=== PATIENT | female | born 1995 | race African-American/Black ===

== ENCOUNTER 2017-01-11 18:07 | Emergency (ER) | payer OTHER ==
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
[2017-01-11 20:11] LABS: Appearance,Urine Clear (Clear); Bacteria,Urine Rare /hpf; Bilirubin,Urine Negative (Negative); Glucose,Urine (UA) Negative (Negative); Ketones,Urine Negative (Negative); Leukocyte Esterase,Urine Moderate (Negative); Mucus,Urine Rare /hpf; Nitrite,Urine Negative (Negative); Particle Count 5845; Protein,Urine Trace (Negative); RBC,Urine 2 /hpf (0-5); Specific Gravity,Urine 1.027 (1.001-1.035); Squamous Epithelial Cell,Urine 4 /hpf (0-4); UA Billing (MACRO vs. MICRO) MICRO; WBC,Urine 17 /hpf (0-5)
[2017-01-11] MEDS ORDERED: NITROFURANTOIN MONOHYD/M-CRYST 100 MG CAP PO STA (20:34)
[2017-01-11 20:51] VITALS: BP 115/66; PULSE 62; RESP 16; TEMP 98.9
== END 2017-01-11 20:50 | disposition home or self-care (01) ==
LOC: EC 18:07
DX: N39.0 Urinary tract infection, site not specified (principal); Z11.3 Encounter for screening for infections with a predominantly sexual mode of transmission; N92.0 Excessive and frequent menstruation with regular cycle; Z87.891 Personal history of nicotine dependence; Z88.6 Allergy status to analgesic agent
CPT/HCPCS: 81001; 81025; 87070; 87077; 87086; 87186; 87205; 87491; 87591; 87808; 99284

== ENCOUNTER → 2018-02-28 | Outpatient (CLI) | payer OTHER ==
--- NOTE | 2018-02-28 13:42 | US ---
EXAMINATION TYPE: Transabdominal DATE OF EXAM: 12/21/17 COMPARISON: NONE CLINICAL HISTORY: Z36 confirm dates. confirm dates EXAM PERFORMED: Transabdominal (TA) EXAM MEASUREMENTS: GESTATIONAL AGE / DATING Physician Established: Not yet established Dates by LMP: (7 weeks/6 days) EDC: 10/11/18 Dates by First Scan: No previous this is first scan Dates by Current Scan for: (8 weeks/4 days) EDC: 10/06/18 MATERNAL ANATOMY Uterus: 11.5 x 5.0 x 6.8cm Right Ovary: 2.1 x 0.9 x 2.4cm Left Ovary: 3.4 x 2.0 x 1.6cm Post CDS / Adnexa: wnl Presence of free fluid: no Presence of corpus luteal cyst: yes, left ovary = 1.9 x 1.9 x 1.7cm Presence of subchorionic bleed: yes, hypoechoic area inferior (1.2cm) and left (1.4cm) of GS GESTATION / SURVEY CRL: 2.0cm (8 weeks/4 days) Yolk Sac (normal less than 6mm): 2.5mm Heart Rate: 162 bpm Rhythm: Normal IUP: Viable IUP Date of LMP: 01/04/18 Beta HcG (if available): Not available at this time Single viable IUP 8wks/4days with JW of 10/06/18. Subchorionic bleed inferior and left of GS. Corpus luteum left ovary. IMPRESSION: 1. Single intrauterine gestation estimated at 8 weeks 4 days gestation based on crown-rump length. Ca rdiac activity measures 1 62 bpm. The estimated date of confinement based on the crown-rump length is 10/06/2018. 2. Subchorionic hemorrhage
== END | disposition home or self-care (01) ==
LOC: RADUSWWP 12:57
PROVIDERS: ATTEND Obstetrics & Gynecology
DX: O20.8 Other hemorrhage in early pregnancy (principal); Z3A.08 8 weeks gestation of pregnancy
CPT/HCPCS: 76801

== ENCOUNTER 2018-05-05 09:57 | Emergency (ER) | payer OTHER ==
[2018-05-05] MEDS ORDERED: METOCLOPRAMIDE 5 MG/ML 2 ML VIAL IVP STA (11:07)
[2018-05-05] MEDS ORDERED: diphenhydrAMINE 50 MG/ML 1 ML VIAL IVP STA (11:07)
[2018-05-05] MEDS ORDERED: SODIUM CHLORIDE 0.9% 1,000 ML IV STA (11:07)
[2018-05-05] MEDS ORDERED: ACETAMINOPHEN TAB 500 MG TAB PO STA (11:07)
[2018-05-05 11:38] LABS: Appearance,Urine Cloudy (Clear); Bilirubin,Urine Negative (Negative); Blood,Urine Negative (Negative); Color,Urine Light Yellow; Glucose,Urine (UA) Negative (Negative); Ketones,Urine 2+ (Negative); Leukocyte Esterase,Urine Negative (Negative); Nitrite,Urine Negative (Negative); PH, Urine 8.5 (5.0-8.0); Protein,Urine Negative (Negative); Specific Gravity,Urine 1.013 (1.001-1.035); Squamous Epithelial Cell,Urine 3 /hpf (0-4); Urobilinogen,Urine <2.0 mg/dL (<2.0); WBC,Urine 1 /hpf (0-5)
[2018-05-05] MEDS ORDERED: SODIUM CHLORIDE 0.9% 1,000 ML IV SCH (11:45)
--- NOTE | 2018-05-05 11:45 | ED ---
Abdominal Pain HPI - General Chief Complaint: Abdominal Pain Stated Complaint: Vomiting-18 wks Time Seen by Provider: 05/05/18 10:40 Source: patient, RN notes reviewed, old records reviewed Mode of arrival: wheelchair Limitations: no limitations - History of Present Illness Initial Comments: 22-year-old female presents emergency department today with chief complaint of nausea and vomiting for the past week. Patient reports that she is able to weeks , her HYBRID CORN BREEDER is Dr. Waller. She denies any vaginal bleeding. Patient pushes her had this type of vomiting with her previous . Patient states that she has not been able tolerate any fluids. Patient states she feels very weak and dehydrated. - Related Data Home Medications Medication Instructions Recorded Confirmed Albuterol Inhaler [Ventolin Hfa 1 - 2 puff INHALATION RT-Q6H PRN 01/11/17 Inhaler] Mds-Dtpu-Juqbu Acid 1 cap PO DAILY 05/05/18 05/05/18 [-U Capsule (formulary)] Previous Rx's Medication Instructions Recorded Doxylamine Succinate/Vit B6 1 each PO BID #20 tab.ir.dr 05/05/18 [Bonjesta ER 20-20 mg Tablet] Allergies Allergy/AdvReac Type Severity Reaction Status Date / Time tramadol AdvReac Nausea & Verified 05/05/18 12:44 Vomiting Review of Systems ROS Statement: Those systems with pertinent positive or pertinent negative responses have been documented in the HPI. ROS Other: All systems not noted in ROS Statement are negative. Past Medical History Past Medical History: Asthma History of Any Multi-Drug Resistant Organisms: ESBL Date of last positivie culture/infection: 01/11/17 MDRO Source:: ESBL URINE Additional Past Surgical History / Comment(s): neck tumor Past Anesthesia/Blood Transfusion Reactions: No Reported Reaction Past Psychological History: Depression Smoking Status: Former smoker Past Alcohol Use History: Occasional Past Drug Use History: Marijuana - Past Family History Mother Family Medical History: No Reported History, Hypertension General Exam - General Exam Comments Initial Comments: 22-year-old female. Alert and oriented. No significant distress, Patient does appear somewhat irritable. Patient has had a few episodes of vomiting while in exam room. Limitations: no limitations General appearance: alert, in no apparent distress Head exam: Present: atraumatic, normocephalic, normal inspection Eye exam: Present: normal appearance, PERRL, EOMI. Absent: scleral icterus, conjunctival injection, periorbital swelling ENT exam: Present: normal exam, mucous membranes moist Neck exam: Present: normal inspection. Absent: tenderness, meningismus, lymphadenopathy Respiratory exam: Present: normal lung sounds bilaterally. Absent: respiratory distress, wheezes, rales, rhonchi, stridor Cardiovascular Exam: Present: regular rate, normal rhythm, normal heart sounds. Absent: systolic murmur, diastolic murmur, rubs, gallop, clicks GI/Abdominal exam: Present: soft, normal bowel sounds. Absent: distended, tenderness, guarding, rebound, rigid Extremities exam: Present: normal inspection, full ROM, normal capillary refill. Absent: tenderness, pedal edema, joint swelling, calf tenderness Back exam: Present: normal inspection Neurological exam: Present: alert, oriented X3, CN II-XII intact Psychiatric exam: Present: normal affect, normal mood Skin exam: Present: warm, dry, intact, normal color. Absent: rash Course Vital Signs 05/05/18 05/05/18 10:35 12:54 Temperature 98.2 F Pulse Rate 88 92 Respiratory 16 18 Rate Blood Pressure 137/74 124/68 O2 Sat by Pulse 100 98 Oximetry Medical Decision Making - Medical Decision Making 22-year-old female present month nausea vomiting or complaints. She states she weeks . At this time patient's labwork was reviewed and unremarkable. Is given 2 L fluids. She is given Reglan and Benadryl does report some relief. She went to burning pain in her abdomen. She was given a dose of Protonix. I discussed other medications for her nausea and can be category B or C with patient's. I will give the Patient a prescription for day clean just like to see nausea and vomiting. She also is currently in counseling. I discussed that she can follow-up with PCP. All questions answered return parameters were discussed. - Lab Data Result diagrams: 05/05/18 11:20 05/05/18 11:20 Lab Results 05/05/18 05/05/18 05/05/18 Range/Units 11:20 11:20 11:20 WBC 12.1 H (3.8-10.6) k/uL RBC 3.94 (3.80-5.40) m/uL Hgb 12.5 (11.4-16.0) gm/dL Hct 37.8 (34.0-46.0) % MCV 96.0 (80.0-100.0) fL MCH 31.6 (25.0-35.0) pg MCHC 33.0 (31.0-37.0) g/dL RDW 13.7 (11.5-15.5) % Plt Count 231 (150-450) k/uL Neutrophils % 81 % Lymphocytes % 15 % Monocytes % 2 % Eosinophils % 1 % Basophils % 0 % Neutrophils # 9.8 H (1.3-7.7) k/uL Lymphocytes # 1.8 (1.0-4.8) k/uL Monocytes # 0.3 (0-1.0) k/uL Eosinophils # 0.2 (0-0.7) k/uL Basophils # 0.0 (0-0.2) k/uL PT 10.0 (9.0-12.0) sec INR 1.0 (<1.2) APTT 22.9 (22.0-30.0) sec Sodium 137 (137-145) mmol/L Potassium 3.8 (3.5-5.1) mmol/L Chloride 108 H (98-107) mmol/L Carbon Dioxide 16 L (22-30) mmol/L Anion Gap 13 mmol/L BUN 5 L (7-17) mg/dL Creatinine 0.53 (0.52-1.04) mg/dL Est GFR (CKD-EPI)AfAm >90 (>60 ml/min/1.73 sqM) Est GFR (CKD-EPI)NonAf >90 (>60 ml/min/1.73 sqM) Glucose 99 (74-99) mg/dL Calcium 9.3 (8.4-10.2) mg/dL Total Bilirubin 0.4 (0.2-1.3) mg/dL AST 27 (14-36) U/L ALT 28 (9-52) U/L Alkaline Phosphatase 45 (38-126) U/L Total Protein 7.1 (6.3-8.2) g/dL Albumin 4.0 (3.5-5.0) g/dL Amylase 167 H (30-110) U/L Lipase 25 (23-300) U/L Urine Color Urine Appearance (Clear) Urine pH (5.0-8.0) Ur Specific [place] (1.001-1.035) Urine Protein (Negative) Urine Glucose (UA) (Negative) Urine Ketones (Negative) Urine Blood (Negative) Urine Nitrite (Negative) Urine Bilirubin (Negative) Urine Urobilinogen (<2.0) mg/dL Ur Leukocyte Esterase (Negative) Urine WBC (0-5) /hpf Ur Squamous Epith Cells (0-4) /hpf 05/05/18 Range/Units 11:20 WBC (3.8-10.6) k/uL RBC (3.80-5.40) m/uL Hgb (11.4-16.0) gm/dL Hct (34.0-46.0) % MCV (80.0-100.0) fL MCH (25.0-35.0) pg MCHC (31.0-37.0) g/dL RDW (11.5-15.5) % Plt Count (150-450) k/uL Neutrophils % % Lymphocytes % % Monocytes % % Eosinophils % % Basophils % % Neutrophils # (1.3-7.7) k/uL Lymphocytes # (1.0-4.8) k/uL Monocytes # (0-1.0) k/uL Eosinophils # (0-0.7) k/uL Basophils # (0-0.2) k/uL PT (9.0-12.0) sec INR (<1.2) APTT (22.0-30.0) sec Sodium (137-145) mmol/L Potassium (3.5-5.1) mmol/L Chloride (98-107) mmol/L Carbon Dioxide (22-30) mmol/L Anion Gap mmol/L BUN (7-17) mg/dL Creatinine (0.52-1.04) mg/dL Est GFR (CKD-EPI)AfAm (>60 ml/min/1.73 sqM) Est GFR (CKD-EPI)NonAf (>60 ml/min/1.73 sqM) Glucose (74-99) mg/dL Calcium (8.4-10.2) mg/dL Total Bilirubin (0.2-1.3) mg/dL AST (14-36) U/L ALT (9-52) U/L Alkaline Phosphatase (38-126) U/L Total Protein (6.3-8.2) g/dL Albumin (3.5-5.0) g/dL Amylase (30-110) U/L Lipase (23-300) U/L Urine Color Light Yellow Urine Appearance Cloudy H (Clear) Urine pH 8.5 H (5.0-8.0) Ur Specific [place] 1.013 (1.001-1.035) Urine Protein Negative (Negative) Urine Glucose (UA) Negative (Negative) Urine Ketones 2+ H (Negative) Urine Blood Negative (Negative) Urine Nitrite Negative (Negative) Urine Bilirubin Negative (Negative) Urine Urobilinogen <2.0 (<2.0) mg/dL Ur Leukocyte Esterase Negative (Negative) Urine WBC 1 (0-5) /hpf Ur Squamous Epith Cells 3 (0-4) /hpf Disposition Clinical Impression: 18 weeks gestation of , Nausea & vomiting Disposition: HOME SELF-CARE Condition: Good Instructions: Nausea and Vomiting in (ED) Additional Instructions: Patient advised follow-up with primary care physician. Return to emergency department if any alarming signs or symptoms occur. Prescriptions: Doxylamine Succinate/Vit B6 [Bonjesta ER 20-20 mg Tablet] 1 each PO BID #20 tab.ir.dr Is patient prescribed a controlled substance at d/c from ED?: No Referrals: None,Stated [Primary Care Provider] - 1-2 days Time of Disposition: 13:59
[2018-05-05 11:49] LABS: Basophils % (A) 0 %; Eosinophils # (A) 0.2 k/uL (0-0.7); Eosinophils % (A) 1 %; HCT 37.8 % (34.0-46.0); HGB 12.5 gm/dL (11.4-16.0); Lymphocytes # (A) 1.8 k/uL (1.0-4.8); Lymphocytes % (A) 15 %; MCH 31.6 pg (25.0-35.0); Mean Platelet Volume 9.6; Monocytes # (A) 0.3 k/uL (0-1.0); Monocytes % (A) 2 %; Neutrophils # (A) 9.8 k/uL (1.3-7.7); Neutrophils % (A) 81 %; Platelet Count 231 k/uL (150-450); RBC 3.94 m/uL (3.80-5.40); RDW 13.7 % (11.5-15.5); WBC 12.1 k/uL (3.8-10.6)
[2018-05-05 11:55] LABS: ALT 28 U/L (9-52); AST 27 U/L (14-36); Alkaline Phosphatase 45 U/L (38-126); Amylase 167 U/L (30-110); Anion Gap 13 mmol/L; Blood Urea Nitrogen 5 mg/dL (7-17); Calcium 9.3 mg/dL (8.4-10.2); Carbon Dioxide 16 mmol/L (22-30); Chloride 108 mmol/L (98-107); Glucose 99 mg/dL (74-99); Lipase 25 U/L (23-300); Potassium 3.8 mmol/L (3.5-5.1); Sodium 137 mmol/L (137-145); Total Bilirubin 0.4 mg/dL (0.2-1.3); Total Protein 7.1 g/dL (6.3-8.2)
[2018-05-05 12:07] LABS: Partial Thromboplastin Time 22.9 sec (22.0-30.0)
--- NOTE | 2018-05-05 12:32 | US ---
EXAMINATION TYPE: US OB >= 14 wk fetus DATE OF EXAM: 05/05/2018 COMPARISON: US CLINICAL HISTORY: Pain Pt states cramping, N & V TECHNIQUE: Transabdominal (TA) GESTATIONAL AGE / DATING Physician Established: (18 weeks/0 days) EDC: 10/06/2018 Dates by First Scan: (18 weeks/0 days) EDC: 10/06/2018 Dates by Current Scan: (18 weeks/0 days) EDC: 10/06/2018 SURVEY IUP: Single PLACENTA: Anterior PREVIA: No Previa MAGI: 10.9 cm Normal CERVICAL LENGTH (transabdominal: norm > 3.0cm): 3.2 cm BIOMETRY PRESENTATION: Breech BPD: 4.1 cm 18 weeks / 2 days HC: 14.8 cm 17 weeks / 6 days AC: 12.8 cm 18 weeks / 2 days FL: 2.6 cm 17 weeks / 5 days ESTIMATED WEIGHT IN GRAMS: 221 grams ESTIMATED WEIGHT IN LBS/OZ: 0 lbs. 8 oz. WEIGHT PERCENTAGE BASED ON ESTABLISHED DATES: 47.2% HC/AC: 1.16 Normal FL/AC: 20 Normal HEART RATE: 151 bpm RHYTHM: Normal Some debris is noted within the amniotic fluid thickness of undetermined clinical significance. Single, viable IUP/ No abnormality visualized at this time IMPRESSION: Single live intrauterine with a sonographic age of 18 weeks and 0 days and estimated date o f delivery of 10/06/2018, concordant with menstrual age.
[2018-05-05 12:55] VITALS: PULSE 92; RESP 18
[2018-05-05] MEDS ORDERED: PANTOPRAZOLE 40 MG/10 ML VIAL IVP STA (13:00)
[2018-05-05] MEDS ORDERED: PYRIDOXINE 100 MG/ML 1 ML VIAL IVP STA (14:01)
[2018-05-05 14:36] VITALS: BP 134/87; TEMP 98.9
== END 2018-05-05 14:34 | disposition home or self-care (01) ==
LOC: EC 09:57
DX: O21.9 Vomiting of pregnancy, unspecified (principal); O99.89 Other specified diseases and conditions complicating pregnancy, childbirth and the puerperium; R10.9 Unspecified abdominal pain; O99.512 Diseases of the respiratory system complicating pregnancy, second trimester; J45.909 Unspecified asthma, uncomplicated; Z87.891 Personal history of nicotine dependence; Z88.6 Allergy status to analgesic agent; Z3A.18 18 weeks gestation of pregnancy
CPT/HCPCS: 99284; 96374; 96375 ×3; 96361 ×3; 36415; 80053; 82150; 83690; 85025; 85610; 85730; 81001; 76805; J1200; J3415; J2765; C9113

== ENCOUNTER 2018-07-11 09:24 | Observation (INO) | payer OTHER ==
[2018-07-11] MEDS ORDERED: ONDANSETRON 4 MG/2 ML VIAL IVP STA (10:06)
[2018-07-11] MEDS: LACTATED RINGERS 1,000 ML IV SCH ×3 (10:11→16:05)
[2018-07-11 10:52] LABS: Appearance,Urine Cloudy (Clear); Bilirubin,Urine Negative (Negative); Blood,Urine Negative (Negative); Color,Urine Yellow; Glucose,Urine (UA) Negative (Negative); Ketones,Urine 3+ (Negative); Leukocyte Esterase,Urine Negative (Negative); Mucus,Urine Rare /hpf; Nitrite,Urine Negative (Negative); PH, Urine 7.5 (5.0-8.0); Protein,Urine 1+ (Negative); RBC,Urine <1 /hpf (0-5); Specific Gravity,Urine 1.022 (1.001-1.035); Squamous Epithelial Cell,Urine 10 /hpf (0-4); Urobilinogen,Urine <2.0 mg/dL (<2.0); WBC,Urine 1 /hpf (0-5)
[2018-07-11 11:32] LABS: Amphetamine Screen,Urine Not Detected (NotDetected); Barbiturate Screen,Urine Not Detected (NotDetected); Benzodiazepines Screen,Urine Not Detected (NotDetected); Cocaine Screen,Urine Not Detected (NotDetected); Methadone Screen, Urine Not Detected (NotDetected); Opiate Screen,Urine Not Detected (NotDetected); Oxycodone Screen, Urine Not Detected (NotDetected); Phencyclidine Screen,Urine Not Detected (NotDetected); Tricyclic Antidepressant,Urine Not Detected (NotDetected); Urn Cannabinoid Scrn Detected (NotDetected)
[2018-07-11] MEDS: NIFEdipine 10 MG CAP PO PRN ×3 (11:51→13:10)
--- NOTE | 2018-07-11 14:26 | US ---
EXAMINATION TYPE: US OB >= 14 wk fetus DATE OF EXAM: 07/11/2018 COMPARISON: US 2018 CLINICAL HISTORY: cervical length, magi, efwSharp pelvic pains and N/V x 1 day, 2, para 1 TECHNIQUE: Transabdominal (TA) GESTATIONAL AGE / DATING Physician Established: (27 weeks/4 days) EDC: 10/06/2018 Dates by LMP: (26 weeks/6 days) EDC: 10/11/2018 Dates by First Scan: (27 weeks/4 days) EDC: 10/06/2018 Dates by Current Scan: (26 weeks/5 days) EDC: 10/12/2018 SURVEY IUP: Single PLACENTA: Anterior PREVIA: No Previa MAGI: 15.0 cm Normal CERVICAL LENGTH (transabdominal: norm > 3.0cm): 3.1 cm BIOMETRY PRESENTATION: Vertex BPD: 7.0 cm 28 weeks / 0 days HC: 25.0 cm 27 weeks / 1 days AC: 22.1 cm 26 weeks / 4 days FL: 5.0 cm 27 weeks / 0 days ESTIMATED WEIGHT IN GRAMS: 989 grams ESTIMATED WEIGHT IN LBS/OZ: 2 lbs. 3 oz. WEIGHT PERCENTAGE BASED ON ESTABLISHED DATES: 15% HC/AC: 1.13 Normal FL/AC: 22.7 Normal HEART RATE: 136 bpm RHYTHM: Normal Live single IUP measuring 26 weeks 5 days with a heart rate of 136bpm and an estimated delivery date of 10/12/2018. IMPRESSION: Single live intrauterine with a sonographic age of 26 weeks and 5 days and estimated date o f delivery 10/12/2018, concordant with menstrual age. Amniotic fluid index and cervical length are wit hin normal limits. Heart rate is also within normal limits at 1 36 bpm.
[2018-07-11 15:15] LABS: Basophils % (A) 0 %; Eosinophils # (A) 0.3 k/uL (0-0.7); Eosinophils % (A) 2 %; HCT 37.7 % (34.0-46.0); HGB 12.6 gm/dL (11.4-16.0); Lymphocytes % (A) 5 %; MCHC 33.3 g/dL (31.0-37.0); Mean Platelet Volume 9.3; Monocytes # (A) 0.3 k/uL (0-1.0); Monocytes % (A) 2 %; Neutrophils # (A) 16.7 k/uL (1.3-7.7); Neutrophils % (A) 91 %; Platelet Count 233 k/uL (150-450); RBC 3.93 m/uL (3.80-5.40); RDW 13.3 % (11.5-15.5); WBC 18.4 k/uL (3.8-10.6)
[2018-07-11] MEDS ORDERED: BETAMET ACET-BETAMETH SOD PHOS 6 MG/ML VIAL IM SCH (15:45)
[2018-07-11] MEDS ORDERED: MAGNESIUM SULFATE-WATER PMX 4 GM in WATER FOR INJECTION 1 50ML.BAG IVPB STA (15:49)
[2018-07-11] MEDS ORDERED: MAGNESIUM SULFATE-WATER PMX 20 GM in WATER FOR INJECTION 1 500ML.BAG IV SCH (16:10)
--- NOTE | 2018-07-11 17:43 | P.HPOB ---
History of Present Illness H&P Date: 07/11/18 Chief Complaint: Intrauterine 27 weeks Patient is a 22-year-old at 27 weeks gestation arrives earlier today complaining of contractions. She was initially evaluated by her primary blueprint clerk who ordered basic evaluation. Her fibronectin was negative and initial cervical exam revealed her to be closed. Despite this and with IV hydration she continued to have contractions. I came and evaluated her myself and all she was having contractions every 1-2 minutes did not palpate is anything more than moderate and most of them were more than mild palpation scale. However, she continued to complain of pain that was 6 out of 10 with each contraction. CBC and TSH were ordered herself white count is elevated at 18 unclear etiology initially I had spoken with [facility] about a transfer as she was continued to contract and pain despite our therapies including a trial of Procardia 3. After discussing with him a decision to transfer her was made, and would plan bolus of mag sulfate 4 g and continuous dose of 2 g/h and a dose of Celestone. However shortly after the magnesium sulfate was started and before even finished her contractions stopped spontaneously and she fell asleep. We continued to monitor her in labor and delivery triage and she no water head contractions was complaining that she was hungry and to nausea and emesis that she had had earlier today had also resolved. As I do not feel comfortable simply sending her home, we have decided to admit her as an observation patient with the understanding that should her contractions returned and the pain get worse would plan transfer to [place]. She has no desire to be transferred at this time that his part of the reason that we are keeping her as she has no right home if she was to be transferred and she is very concerned about this. Her cervix is made no cervical change and there been no other issues. Category 1 tracing is noted. We'll plan to decrease that make sulfate later on this evening to 1 g an hour and if the contractions remain absent we'll plan to discontinue it later tonight. All the questions are answered for her at this time and other than likely starting an antibiotic as a precaution we'll plan this treatment. Past Medical History Past Medical History: Asthma History of Any Multi-Drug Resistant Organisms: ESBL Date of last positivie culture/infection: 01/11/17 MDRO Source:: ESBL URINE Additional Past Surgical History / Comment(s): neck tumor Past Anesthesia/Blood Transfusion Reactions: No Reported Reaction Smoking Status: Former smoker - Past Family History Mother Family Medical History: No Reported History, Hypertension Medications and Allergies Home Medications Medication Instructions Recorded Confirmed Type Albuterol Inhaler [Ventolin Hfa 1 - 2 puff INHALATION RT-Q6H PRN 01/11/17 History Inhaler] Chc-Rgio-Jlpjn Acid 1 cap PO DAILY 05/05/18 07/11/18 History [-U Capsule (formulary)] Allergies Allergy/AdvReac Type Severity Reaction Status Date / Time tramadol AdvReac Nausea & Verified 07/11/18 10:02 Vomiting Exam Osteopathic Statement: *. No significant issues noted on an osteopathic structural exam other than those noted in the History and Physical/Consult. Vital Signs Temp Pulse Resp BP Pulse Ox 07/11/18 09:59 96.4 F L 93 16 142/89 100 Intake and Output 07/11/18 07/11/18 07/11/18 06:59 14:59 22:59 Other: Weight 51.71 kg - OBG Physical Exam Breast: both: normal (no masses) Abdomen: bowel sounds normal, no diffuse tenderness, no bruit present, no guarding noted, no hepatomegaly, no splenomegaly, no mass Vulva: both: normal Vagina: normal moisture, no discharge Cervix: no lesion, no discharge Uterus: normal size, normal contour Adnexa: both: normal Anus/Rectum: normal perianal skin, no rectal mass, no hemorrhoids, heme negative Results Result Diagrams: 07/11/18 14:55 Abnormal Lab Results - Last 24 Hours (Table) 07/11/18 07/11/18 07/11/18 Range/Units 09:43 09:43 14:55 WBC 18.4 H (3.8-10.6) k/uL Neutrophils # 16.7 H (1.3-7.7) k/uL Urine Appearance Cloudy H (Clear) Urine Protein 1+ H (Negative) Urine Ketones 3+ H (Negative) Ur Squamous Epith Cells 10 H (0-4) /hpf Urine Mucus Rare H (None) /hpf U Marijuana (THC) Screen Detected H (NotDetected)
[2018-07-11 17:44] VITALS: BMI 21.5
[2018-07-11 17:56] VITALS: BP 129/69; PULSE 100; RESP 18; TEMP 98.1
[2018-07-11] MEDS: AMPICILLIN 1,000 MG in SODIUM CHLORIDE 0.9% 50 ML IVPB SCH (18:30)
[2018-07-11] MEDS: FAMOTIDINE 20 MG/2 ML VIAL IV SCH (22:37)
[2018-07-12] MEDS: AMPICILLIN 1,000 MG in SODIUM CHLORIDE 0.9% 50 ML IVPB SCH ×2 (02:58→09:39)
[2018-07-12] MEDS ORDERED: ONDANSETRON 4 MG/2 ML VIAL IVP STA (03:30)
[2018-07-12] MEDS ORDERED: MAG HYDROX/AL HYDROX/SIMETH 30 ML CUP PO SCH (04:30)
[2018-07-12] MEDS: LACTATED RINGERS 1,000 ML IV SCH (08:07)
[2018-07-12 08:17] LABS: Basophils % (A) 0 %; Eosinophils # (A) 0.1 k/uL (0-0.7); Eosinophils % (A) 1 %; HCT 30.2 % (34.0-46.0); HGB 10.3 gm/dL (11.4-16.0); Lymphocytes # (A) 1.4 k/uL (1.0-4.8); Lymphocytes % (A) 9 %; MCH 32.6 pg (25.0-35.0); MCHC 33.9 g/dL (31.0-37.0); Mean Platelet Volume 9.7; Monocytes # (A) 0.8 k/uL (0-1.0); Monocytes % (A) 5 %; Neutrophils # (A) 14.2 k/uL (1.3-7.7); Neutrophils % (A) 86 %; Platelet Count 200 k/uL (150-450); RBC 3.15 m/uL (3.80-5.40); RDW 13.4 % (11.5-15.5); WBC 16.6 k/uL (3.8-10.6)
--- NOTE | 2018-07-12 09:14 | P.PNOBGAP ---
Subjective - Subjective Principal diagnosis: Contractions, dehydration Interval history: Patient was admitted for observation after being given IV fluids and Procardia to stop her contractions. Right about the time she was scheduled to be transferred, she stopped jena and felt fine. She was observed overnight and given magnesium sulfate for neuro protection and IV antibiotics. She is still had episodes where she is writhing in the bed complaining of abdominal pain and vomiting. She states that getting up to the shower does help with the nausea but she has still been feeling some contractions. Her fibronectin was negative. Her cervix is still closed this morning. Antepartum ROS: Reports movement normal, Reports contractions (Irregular but strong), Reports other (Still having episodes of vomiting and nausea), Denies loss of fluid, Denies vaginal bleeding Objective - Vital Signs Vital Signs: Vital Signs Temp Pulse Resp BP Pulse Ox 07/11/18 16:53 98.1 F 100 18 129/69 100 07/11/18 09:59 96.4 F L 93 16 142/89 100 Intake and Output 07/11/18 07/12/18 07/12/18 22:59 06:59 14:59 Output Total 200 200 Balance -200 -200 Output: Urine 200 200 Other: # Voids 1 Weight 51.71 kg - Exam FHR: class 1 Abdomen: Present: soft. Absent: distention, tenderness Uterus: Present: normal. Absent: tenderness Cervical dilation: Closed Cervix effacement: Thick station: Ballotable - Labs Labs: Abnormal Labs 07/11/18 07/11/18 07/11/18 09:43 09:43 14:55 WBC 18.4 H RBC Hgb Hct Neutrophils # 16.7 H Urine Appearance Cloudy H Urine Protein 1+ H Urine Ketones 3+ H Ur Squamous Epith Cells 10 H Urine Mucus Rare H U Marijuana (THC) Screen Detected H 07/12/18 07:29 WBC 16.6 H RBC 3.15 L Hgb 10.3 L Hct 30.2 L Neutrophils # 14.2 H Urine Appearance Urine Protein Urine Ketones Ur Squamous Epith Cells Urine Mucus U Marijuana (THC) Screen Assessment and Plan Assessment: Impression is intrauterine at 27-3/7 weeks, contractions, intractable nausea and vomiting. Plan: I have discussed with the patient transferring to maternal- medicine for further evaluation of the cause of her nausea and vomiting and her contractions. She is agreeable to transfer to try to figure out what is causing her continued vomiting. I have discussed with Dr. Pretty at [facility] in [place] and he has accepted transfer.
--- NOTE | 2018-07-12 09:18 | P.DS ---
Providers Date of admission: 07/11/18 17:05 Expected date of discharge: 07/12/18 Attending physician: Kavitha Waller Consults: Dr. Pretty at maternal- medicine Primary care physician: Stated None Hospital Course: This is a 22-year-old female 3 para 1 at 27-3/7 weeks who presented with contractions every 1-2 minutes and nausea and vomiting along with abdominal pain. She was given IV hydration along with Procardia and this did slow her contractions. She was then placed on magnesium sulfate for neuro protection and given 1 dose of Celestone so far. She continues to have nausea and vomiting but her contractions are irregular at this point. She will be transferred to maternal- medicine service per Dr. Pretty at [facility] in [place] for further evaluation. Procedures: IV hydration Patient Condition at Discharge: Stable Plan - Discharge Summary New Discharge Prescriptions: No Action Albuterol Inhaler [Ventolin Hfa Inhaler] 1 - 2 puff INHALATION RT-Q6H PRN PRN Reason: Shortness Of Breath Drl-Qyah-Mmtad Acid [-U Capsule (formulary)] 1 cap PO DAILY Discharge Medication List Albuterol Inhaler [Ventolin Hfa Inhaler] 1 - 2 puff INHALATION RT-Q6H PRN [History] Muj-Yscw-Rmoei Acid [-U Capsule (formulary)] 1 cap PO DAILY [History] Discharge Disposition: OTHER INSTITUTION NOT DEFINED
[2018-07-12] MEDS: FAMOTIDINE 20 MG/2 ML VIAL IV SCH (10:05)
--- NOTE | 2018-07-12 13:01 | P.PN ---
Progress Note - Text Progress Note Date: 07/12/18 I did see Bob approximately 3 times through the night due to her symptomatology. Initially at approximately 10:00 I was called to evaluate her and I came in from home and by the time I got here she was asleep. At that time I had planned transfer her due to unclear etiology of her pain. Once she woke up her pain remained absent for an extended period time and then she ate some lemon Jell-O and almost immediately began having severe reflux and the spitting up sensation. I ordered Maalox and she did on Pepcid earlier in the evening and Zofran. I went and evaluated her there was no signs or symptoms of cardiac etiology or pulmonary etiology and really the only symptom she had was this burning sensation. She was seen rocking back and forth in bed initially but after only a few minutes and once she showered the symptoms completely abated. I think that this may be a primary GI issue and she may need gastroenterology intervention. She and I had a lengthy discussion and due to the fact that it was sometime after 2 in the morning the decision to hold any transfer was made until she could be reevaluated in the morning and see how her symptoms were at that time. All the questions were answered for her through the evening and she remained with a category 1 tracing. Contractions had essentially stopped and what she was being noted to have on tocodynamometer she was not feeling.
--- NOTE | 2018-07-13 08:58 | P.MSEPDOC ---
Presenting Problems - Arrival Data Date of Arrival on Unit: 07/12/18 Time of Arrival on Unit: 09:25 Mode of Transport: Portable - Complaint OB-Reason for Admission/Chief Complaint: Possible Onset of Labor, Acute Nausea/ Vomiting Medical History - Information : 3 Para: 1 Term: 1 : 0 Abortions: Spontaneous or Elective: 1 Number of Living Children: 1 - Gestational Age Gestational Age by JW (wks/days): 26 Weeks and 6 Days - History Complications: Prior Comment: pt denies any complications with pregancny Review of Systems - Review of Systems Constitutional: No problems Breast: No problems ENT: No problems Cardiovascular: No problems Respiratory: No problems Gastrointestinal: No problems Genitourinary: No problems Musculoskeletal: No problems Neurological: No problems Skin: No problems Vital Signs - Temperature Temperature: 98.1 F Temperature Source: Oral - Pulse Right Sitting Pulse Rate: 100 Pulse Assessment Method: Automatic Cuff - Respirations Respiratory Rate: 18 Oxygen Delivery Method: Room Air O2 Sat by Pulse Oximetry: 100 - Blood Pressure Right Arm Blood Pressure: 129/69 Blood Pressure Mean: 89 Blood Pressure Source: Automatic Cuff Medical Screen Scoring (Pre) - Cervical Exam Dilation: 0 cm = 0 Membranes: Intact - Uterine Contractions Frequency: < 36 weeks = 6 Duration: > 40 seconds = 2 Intensity: N/A - Maternal Vital Signs Maternal Temperature: N/A Maternal Blood Pressure: Systolic >139 = 2 Signs of Preeclampsia: Nausea/Vomiting = 1 Maternal Respirations: N/A - Pain Assessment Pain Location and Character: Abdomen Pain Scale Used: Numeric (1 - 10) Pain Intensity: 6 Pain Description: *Acute Pain Frequency: Intermittent Pain Duration Units: Hours Pain Behavior: Crying, Nausea, Upset, Vocalization Pain Aggravating Factors: Contractions Non-Pharmacological Interventions: Darkened Room, Position/Reposition - Maternal Trauma Maternal Trauma: N/A - Assessment Baseline FHR: 145 Heart Rate - NICHD Category: Category I (Normal) = 0 Position: N/A Station: N/A - Total Score Total Score (Pre): 11 - Level of Risk Level of Risk: High (10+) Physician Notification (Pre) - Physician Notified Physician Notified Date: 07/11/18 Physician Notified Time: 09:59 Physician/Practitioner Notifed:: Sridhar New Order Received: Yes - Notification Comment Comment: bp repeated mulitple times, initial bp elevated, pt in pain while initial bp being taken, repeat bps wnl Medical Screen Scoring (Post) - Cervical Exam Dilation: 0 cm = 0 Membranes: Intact - Uterine Contractions Frequency: > 5 minutes apart = 1 Duration: > 40 seconds = 2 Intensity: N/A - Maternal Vital Signs Maternal Temperature: N/A Maternal Blood Pressure: N/A Signs of Preeclampsia: N/A Maternal Respirations: N/A - Pain Assessment Pain Location and Character: Abdomen Pain Scale Used: Numeric (1 - 10) Pain Intensity: 6 Pain Description: *Acute Pain Frequency: Occasional Pain Duration Units: Minutes Pain Behavior: None Exhibited Pain Aggravating Factors: Contractions - Maternal Trauma Maternal Trauma: N/A - Assessment Heart Rate: 135 Heart Rate - NICHD Category: Category I (Normal) = 0 NST: Reactive Position: N/A Station: N/A - Total Score Total Score (Post): 3 - Post Treatment Level of Risk Post Treatment Level of Risk: Low (0-5) Physician Notification (Post) - Physician Notified Physician Notified Date: 07/11/18 Physician Notified Time: 16:53 Physician/Practitioner Notified:: Con Tristan Order Received: Yes (admit obv) Disposition - Disposition OB Disposition: Admit, Observe I agree with the RN Medical Screening Exam: Yes Risk & Benefit of care provided described in d/c instruction: Yes Diagnosis: VOMITING OF , UNSPECIFIED
== END 2018-07-12 10:10 | disposition other institution (70) ==
LOC: FBPOP 09:24 → 4FBP 17:05
PROVIDERS: ADMIT Obstetrics & Gynecology; ATTEND Obstetrics & Gynecology
DX: O60.00 Preterm labor without delivery, unspecified trimester (principal); O21.2 Late vomiting of pregnancy; R10.9 Unspecified abdominal pain; E86.0 Dehydration; O99.282 Endocrine, nutritional and metabolic diseases complicating pregnancy, second trimester; J45.909 Unspecified asthma, uncomplicated; O99.512 Diseases of the respiratory system complicating pregnancy, second trimester; Z87.891 Personal history of nicotine dependence; Z3A.27 27 weeks gestation of pregnancy; Z88.8 Allergy status to other drugs, medicaments and biological substances
CPT/HCPCS: 96376; 96361; 96365; 96372; 96375; 82731; 84443; 85025 ×2; 81001; 80306; 76805; G0463; G0378 ×2; J0702; J3475 ×2; J2405 ×2; J0290 ×2; 99214; 99215

== ENCOUNTER 2018-10-10 05:26 | Inpatient (IN) | payer OTHER ==
--- NOTE | 2018-10-09 20:14 | P.HPOB ---
History of Present Illness H&P Date: 10/09/18 Chief Complaint: Scheduled repeat section This is a 22 y.o. female, 3, para 1, with an estimated date of confinement of 10/11/2018 and an estimated gestational age of 39-6/7 weeks, who presents for scheduled repeat section. She has been experiencing frequent contractions and pressure. Her has been complicated by nausea and vomiting and frequent contractions. She was admitted to Maternal Medicine at 30 weeks for contractions and did receive 2 doses of Celestone. Her cervix has been closed the whole time. labs: Hepatitis B surface antigen-negative RPR-nonreactive Rubella-immune Blood type-O+ Antibody screen-negative Hemoglobin-13.1 Random glucose-76 One hour Glucola-97 Group B streptococcus-negative Obstetrical history: . History of 1 delivery at term secondary to failed induction. She also has a history of 1 miscarriage. Gynecologic history: She does have a history of chlamydia treated. Review of Systems Constitutional: Denies chills, Denies fever Eyes: denies blurred vision, denies pain Ears, nose, mouth and throat: Denies headache, Denies sore throat Cardiovascular: Denies chest pain, Denies shortness of breath Respiratory: Denies cough Gastrointestinal: Reports abdominal pain Genitourinary: Reports pelvic pain, Reports Musculoskeletal: Reports low back pain Integumentary: Denies pruritus, Denies rash Neurological: Denies numbness, Denies weakness Psychiatric: Reports anxiety Past Medical History Past Medical History: Asthma History of Any Multi-Drug Resistant Organisms: ESBL Date of last positivie culture/infection: 01/11/17 MDRO Source:: ESBL URINE Past Surgical History: Section Additional Past Surgical History / Comment(s): neck tumor Past Anesthesia/Blood Transfusion Reactions: No Reported Reaction Past Psychological History: No Psychological Hx Reported Smoking Status: Former smoker Past Alcohol Use History: None Reported Past Drug Use History: None Reported - Past Family History Mother Family Medical History: Hypertension Additional Family Medical History / Comment(s): Brain aneurysm. Medications and Allergies Home Medications Medication Instructions Recorded Confirmed Type Albuterol Inhaler [Ventolin Hfa 1 - 2 puff INHALATION RT-Q6H PRN 01/11/17 History Inhaler] Zlm-Vtwx-Didxj Acid 1 cap PO DAILY 05/05/18 10/07/18 History [-U Capsule (formulary)] Allergies Allergy/AdvReac Type Severity Reaction Status Date / Time adhesive tape Allergy Rash/Hives Verified 10/07/18 08:43 tramadol AdvReac Nausea & Verified 10/07/18 08:37 Vomiting Exam Osteopathic Statement: *. No significant issues noted on an osteopathic structural exam other than those noted in the History and Physical/Consult. HEENT: Within normal limits Heart: Regular rate and rhythm Lungs: Clear to auscultation bilaterally Abdomen: Cervix: Closed/60%/-2 station heart tones: 140s Extremities: Negative Homans Assessment and Plan (1) 39 weeks gestation of Status: Acute Code(s): Z3A.39 - 39 WEEKS GESTATION OF SNOMED Code( s): 70681703 (2) Previous delivery affecting Status: Acute Code(s): O34.219 - MATERNAL CARE FOR UNSP TYPE SCAR FROM PREVIOUS DEL SNOMED Code(s): 559790434 Plan: Proceed with repeat section. I have discussed the risks, benefits, and alternative therapies for the above- mentioned procedure and for both sedation/anesthesia as well as necessary blood products administration, if indicated, as they pertain to this patient. The patient has indicated her understanding and acceptance of the risks and procedures discussed.
[~2018-10-10 05:26] MED LIST: ALBUTEROL NEBULIZED 2.5 MG/3 ML INHALATION PRN
[2018-10-10] MEDS ORDERED: ceFAZolin IN SWFI 2 GM/20 ML SYRINGE IVP ONE (05:42)
[2018-10-10] MEDS ORDERED: LIDOCAINE 1% 20 ML VIAL (10MG/ML) FOR IV START INTRADERMA PRN (05:42)
[2018-10-10] MEDS ORDERED: LACTATED RINGERS 1,000 ML IV ONE (05:42)
[2018-10-10] MEDS ORDERED: CITRIC ACID-SODIUM CITRATE 15 ML CUP PO ONE (05:42)
[2018-10-10 06:00] VITALS: BMI 24.1
[2018-10-10 06:00] LABS: Basophils % (A) 1 %; Eosinophils # (A) 0.2 k/uL (0-0.7); Eosinophils % (A) 2 %; HCT 41.2 % (34.0-46.0); HGB 13.2 gm/dL (11.4-16.0); Lymphocytes # (A) 3.3 k/uL (1.0-4.8); Lymphocytes % (A) 45 %; MCH 30.5 pg (25.0-35.0); MCHC 32.2 g/dL (31.0-37.0); MCV 94.8 fL (80.0-100.0); Mean Platelet Volume 9.4; Monocytes # (A) 0.3 k/uL (0-1.0); Monocytes % (A) 5 %; Neutrophils # (A) 3.1 k/uL (1.3-7.7); Neutrophils % (A) 43 %; Platelet Count 260 k/uL (150-450); RBC 4.34 m/uL (3.80-5.40); RDW 13.9 % (11.5-15.5); WBC 7.3 k/uL (3.8-10.6)
[2018-10-10] MEDS ORDERED: MORPHINE SULFATE (PF) 0.3 MG/0.3 ML SYR ONE (08:00)
[2018-10-10] MEDS ORDERED: ONDANSETRON 4 MG/2 ML VIAL ONE (08:00)
[2018-10-10] MEDS ORDERED: fentaNYL (PF) 50 MCG/ML 2 ML AMP ONE (08:00)
[2018-10-10] MEDS ORDERED: OXYTOCIN 10 UNIT/ML 1 ML VIAL ONE (08:00)
[2018-10-10] MEDS ORDERED: KETOROLAC 30 MG/ML 1 ML VIAL ONE (08:00)
--- NOTE | 2018-10-10 08:45 | P.OP ---
Date of Procedure: 10/10/18 Preoperative Diagnosis: 1. Intrauterine at 39-6/7 weeks. 2. History of previous delivery. Postoperative Diagnosis: Same plus meconium-stained fluid Procedure(s) Performed: Repeat low transverse section Anesthesia: spinal (Duramorph) Surgeon: Kavitha Waller Assistant Teacher #1: Blayne Herbert Estimated Blood Loss (ml): 500 Pathology: other (Placenta) Condition: stable Disposition: floor Indications for Procedure: This is a 22-year-old female 3 para 1 at 39-6/7 weeks who presents for scheduled repeat section. I have discussed the risks, benefits, and alternative therapies for the above- mentioned procedure and for both sedation/anesthesia as well as necessary blood products administration, if indicated, as they pertain to this patient. The patient has indicated her understanding and acceptance of the risks and procedures discussed. Operative Findings: A viable female infant is noted in the vertex presentation with scores of 9 at 1 minute and 9 at 5 minutes and weight of 6 lbs. 2 oz. Meconium- stained fluid was noted. Normal uterus tubes and ovaries are noted. Description of Procedure: The patient is taken to the operating room where she is placed in the dorsal supine position with leftward tilt after spinal Duramorph anesthesia is given. She is prepped and draped in the normal sterile fashion. Skin was tested and found to be adequately anesthetized. A Pfannenstiel skin incision was made with a scalpel removing the previous laparotomy scar. A second knife was used to carry the incision down to the underlying layer of fascia. The fascia was nicked in the midline with a scalpel and then extended laterally bilaterally with Khoury scissors. The anterior lip of the fascia was grasped with 2 Bertha clamps and then dissected off the underlying rectus muscle in the midline with Khoury scissors. The inferior aspect of the fascial incision was grasped with 2 Bertha clamps and dissected off the underlying rectus muscle and the midline with Khoury scissors. Next the peritoneum layer was tented up with 2 hemostats and then entered sharply with the scalpel. The incision is extended superiorly and inferiorly with Metzenbaum scissors. Next a DeLee retractor is placed. The vesicouterine peritoneum is entered sharply with Metzenbaum scissors and extended laterally bilaterally with Metzenbaum scissors and then the bladder flap is pushed inferiorly. The lower uterine segment is incised in transverse fashion with the scalpel and then bluntly entered with a hemostat. Meconium fluid is noted. The incision was then extended laterally bilaterally with 2 fingers. Next the 's head is delivered through the incision. Nose and mouth are bulb suctioned. The remainder of the is easily delivered and placed on mother's abdomen. Cord is clamped and cut. is taken to warmer by nursing staff. Uterine fundus is gently massaged and placenta is delivered manually. Uterus is exteriorized and cleared of all clots and debris. Uterine incision is closed with 0 Vicryl suture in a running locked fashion. A second layer of 0 Vicryl suture is used in a running fashion for hemostasis. Once adequate hemostasis as assured, the vesicouterine peritoneum is reapproximated with 2-0 Vicryl suture in a running fashion. Posterior cul-de -sac is suctioned of all clots and debris. Uterus is returned to the abdomen. Incision is noted to be hemostatic. Peritoneal layer is closed with 0 Vicryl suture in a running fashion. Muscle layer is reapproximated with 0 Vicryl suture in interrupted fashion. Fascia layer is then closed with 0 PDS suture with 2 sutures meeting in the midline and the knots buried in either side and in the midline. The subcutaneous tissue was then closed with 2-0 Vicryl suture. Skin layer was then closed with anton. All sponge and needle counts are correct. The patient is taken to recovery room in stable condition.
[2018-10-10] MEDS ORDERED: ZOLPIDEM 5 MG TAB PO PRN (08:54)
[2018-10-10] MEDS ORDERED: METOCLOPRAMIDE 5 MG/ML 2 ML VIAL IVP PRN (08:54)
[2018-10-10] MEDS ORDERED: diphenhydrAMINE 50 MG/ML 1 ML VIAL IVP PRN ×2 (08:54)
[2018-10-10] MEDS ORDERED: diphenhydrAMINE 25 MG CAP PO PRN (08:54)
[2018-10-10] MEDS ORDERED: SIMETHICONE 80 MG CHEWABLE PO PRN (08:54)
[2018-10-10] MEDS ORDERED: NALOXONE 0.4 MG/ML 1 ML VIAL IV PRN (08:54)
[2018-10-10] MEDS ORDERED: OXYTOCIN 20 UNITS/1000 ML NS 1,000 ML IV SCH (08:54)
[2018-10-10] MEDS ORDERED: LANOLIN CREAM 5 GM TUBE TOPICAL PRN (08:54)
[2018-10-10] MEDS ORDERED: ONDANSETRON 4 MG/2 ML VIAL IVP PRN (08:54)
[2018-10-10] MEDS: LACTATED RINGERS 1,000 ML IV SCH ×5 (11:35→20:17)
[2018-10-10] MEDS: KETOROLAC 30 MG/ML 1 ML VIAL IVP PRN ×2 (17:29→23:56)
[2018-10-10] MEDS: diphenhydrAMINE 50 MG CAP PO PRN (20:04)
[2018-10-10] MEDS: SENNOSIDES-DOCUSATE SODIUM 1 EACH TAB PO SCH (20:04)
[2018-10-11] MEDS: diphenhydrAMINE 50 MG CAP PO PRN (04:38)
[2018-10-11] MEDS: ACETAMINOPHEN TAB 325 MG TAB PO PRN ×2 (04:39→11:46)
[2018-10-11 06:39] LABS: Basophils % (A) 0 %; Eosinophils # (A) 0.3 k/uL (0-0.7); Eosinophils % (A) 3 %; HCT 31.5 % (34.0-46.0); HGB 10.3 gm/dL (11.4-16.0); Lymphocytes # (A) 1.9 k/uL (1.0-4.8); Lymphocytes % (A) 20 %; MCH 31.2 pg (25.0-35.0); MCHC 32.8 g/dL (31.0-37.0); MCV 95.1 fL (80.0-100.0); Mean Platelet Volume 8.3; Monocytes # (A) 0.3 k/uL (0-1.0); Monocytes % (A) 3 %; Neutrophils # (A) 7.2 k/uL (1.3-7.7); Neutrophils % (A) 73 %; Platelet Count 191 k/uL (150-450); RBC 3.32 m/uL (3.80-5.40); RDW 13.7 % (11.5-15.5); WBC 9.9 k/uL (3.8-10.6)
[2018-10-11] MEDS: KETOROLAC 30 MG/ML 1 ML VIAL IVP PRN (07:43)
[2018-10-11] MEDS: LACTATED RINGERS 1,000 ML IV SCH ×4 (08:14→20:30)
[2018-10-11] MEDS: SENNOSIDES-DOCUSATE SODIUM 1 EACH TAB PO SCH ×2 (08:47→19:53)
--- NOTE | 2018-10-11 08:51 | P.PN ---
Progress Note - Text Progress Note Date: 10/11/18 Post op day 1 from C section with duramorph. Doing well, no weakness, minimal pruritis. Pain under control. Site is clean, no erythema. patient able to ambulate and have bowel function.
--- NOTE | 2018-10-11 09:35 | P.PNOBGPC ---
Subjective - Subjective Principal diagnosis: Status post delivery postoperative day #1 Interval history: Patient is doing well. She is ambulated. She is passing flatus but no bowel movement yet. She is urinating without difficulty. Baby is feeding well. Patient reports: Reports appetite normal, Reports voiding normally, Reports pain well controlled, Reports ambulating normally : doing well Objective - Vital Signs Latest vital signs: Vital Signs Temp Pulse Resp BP Pulse Ox 10/11/18 08:00 97.8 F 70 18 118/72 100 10/11/18 04:00 97.4 F L 74 16 122/82 98 10/11/18 00:00 98.8 F 79 16 128/74 100 10/10/18 20:00 98.6 F 86 18 136/89 99 10/10/18 16:55 97.7 F 88 20 147/88 100 10/10/18 11:44 97.7 F 77 16 134/88 100 10/10/18 10:50 98.1 F 63 16 146/96 100 10/10/18 10:20 88 16 137/93 98 10/10/18 09:50 83 16 144/95 100 10/10/18 09:35 71 16 151/94 99 Intake and Output 10/10/18 10/11/18 10/11/18 22:59 06:59 14:59 Intake Total 140 Output Total 300 200 Balance -160 -200 Intake: Oral 140 Output: Urine 300 200 Other: # Voids 1 5 - Exam Extremities: Present: normal. Absent: tenderness Abdomen: Present: normal appearance, soft (Positive bowel sounds 4). Absent: distention, tenderness Incision: Present: normal, dry, intact. Absent: erythematous Uterus: Present: normal, firm. Absent: tenderness - Labs Labs: Abnormal Lab Results - Last 24 Hours (Table) 10/11/18 Range/Units 06:28 RBC 3.32 L (3.80-5.40) m/uL Hgb 10.3 L (11.4-16.0) gm/dL Hct 31.5 L (34.0-46.0) % Assessment and Plan Assessment: Impression is status post repeat low transverse section postoperative day #1. (1) 39 weeks gestation of Current Visit: No Status: Acute Code(s): Z3A.39 - 39 WEEKS GESTATION OF SNOMED Code(s): 14711265 (2) Previous delivery affecting Current Visit: No Status: Acute Code(s): O34.219 - MATERNAL CARE FOR UNSP TYPE SCAR FROM PREVIOUS DEL SNOMED Code(s): 002234313 Plan: Continue with postoperative care. Will advance diet as tolerated. We'll switch to oral pain medications today.
[2018-10-11] MEDS: IBUPROFEN 600 MG TAB PO PRN ×2 (13:24→22:44)
[2018-10-11] MEDS: HYDROcodone/APAP 5-325MG 1 EACH TAB PO PRN ×2 (16:10→19:55)
[2018-10-12] MEDS: LACTATED RINGERS 1,000 ML IV SCH ×2 (00:07→04:34)
[2018-10-12] MEDS: HYDROcodone/APAP 5-325MG 1 EACH TAB PO PRN ×4 (01:02→20:02)
[2018-10-12] MEDS: SENNOSIDES-DOCUSATE SODIUM 1 EACH TAB PO SCH ×2 (07:25→20:04)
--- NOTE | 2018-10-12 09:00 | P.PNOBGPC ---
Subjective - Subjective Principal diagnosis: Status post section postoperative day #2 Interval history: Patient is in more pain today. She has been passing flatus and bowel movement. She is alternating between ibuprofen and [place] but she did go 6 hours with nothing over the night. She is breast-feeding. Lochia is decreasing. Patient reports: Reports appetite normal, Reports voiding normally, Reports pain poorly controlled, Reports ambulating normally Oran: doing well, nursing well Objective - Vital Signs Latest vital signs: Vital Signs Temp Pulse Resp BP Pulse Ox 10/11/18 23:52 98.5 F 65 18 135/80 99 10/11/18 16:00 98.4 F 78 18 128/82 100 10/11/18 12:00 98.6 F 84 18 112/71 99 Intake and Output 10/11/18 10/12/18 10/12/18 22:59 06:59 14:59 Intake Total 240 Balance 240 Intake: Oral 240 Other: # Voids 2 2 - Exam Extremities: Present: normal. Absent: tenderness Abdomen: Present: normal appearance, soft (Positive bowel sounds 4). Absent: distention Incision: Present: normal, dry, intact. Absent: erythematous Uterus: Present: normal, firm. Absent: tenderness Assessment and Plan Assessment: Impression is status post repeat section postoperative day #2 (1) 39 weeks gestation of Current Visit: No Status: Acute Code(s): Z3A.39 - 39 WEEKS GESTATION OF SNOMED Code(s): 41887199 (2) Previous delivery affecting Current Visit: No Status: Acute Code(s): O34.219 - MATERNAL CARE FOR UNSP TYPE SCAR FROM PREVIOUS DEL SNOMED Code(s): 681180257 Plan: We'll continue with pain control today. She is encouraged alternate between ibuprofen and [place]. She is encouraged to ambulate.
[2018-10-12] MEDS: IBUPROFEN 600 MG TAB PO PRN ×3 (10:26→23:21)
[2018-10-12 16:34] VITALS: RESP 16
[2018-10-12] MEDS: HYDROCORTISONE 1% CREAM 30 GM TUBE TOPICAL PRN ×2 (17:48→21:31)
[2018-10-13] MEDS: HYDROcodone/APAP 5-325MG 1 EACH TAB PO PRN ×2 (04:51→11:15)
[2018-10-13] MEDS: IBUPROFEN 600 MG TAB PO PRN ×3 (07:45→22:02)
[2018-10-13] MEDS: SENNOSIDES-DOCUSATE SODIUM 1 EACH TAB PO SCH ×2 (07:46→20:56)
[2018-10-13] MEDS: HYDROCORTISONE 1% CREAM 30 GM TUBE TOPICAL PRN (08:35)
--- NOTE | 2018-10-13 09:11 | P.DS ---
Providers Date of admission: 10/10/18 05:26 Expected date of discharge: 10/13/18 Attending physician: Kavitha Waller Primary care physician: Kavitha Waller - Discharge Diagnosis(es) (1) 39 weeks gestation of Current Visit: No Status: Acute (2) Previous delivery affecting Current Visit: No Status: Acute Hospital Course: This is a 22-year-old female 3 para 1 at 39-6/7 weeks who presented for scheduled repeat section. She underwent a repeat low transverse section under spinal Duramorph anesthesia on 10/10/2018 and delivered a viable female with scores of 9 at 1 minute and 9 at 5 minutes and infant weight of 6 lbs. 2 oz. Her postoperative course has been complicated by postoperative pain. She has been alternating between Rowdy and ibuprofen but today feels like her pain is slightly worse. She has been passing flatus but no bowel movement today. She has had a bowel movement a couple days ago. She is complaining of more gas pain today. Lochia is still minimal. She is breast-feeding. Vital signs are stable. Abdomen is soft but slightly distended with positive bowel sounds 4. Incision is clean dry and intact. Extremities show negative Homans. Impression is status post repeat section postoperative day #3. Plan is to possibly discharge home later today if she is able to get the gas working through better. She is encouraged to ambulate and try to lay on her abdomen for a short time to help with the gas pain. She will be given a prescription for ibuprofen and Rowdy. She has signed the start taking opioid form and maps is checked. She also will be given a prescription for a breast pump. She is advised to follow up in the office in 1 week for a postoperative check and in 6 weeks for check. She is advised to call the office if she has any further questions or concerns prior to her appointment time. Procedures: Repeat low transverse section on 10/10/2018 Patient Condition at Discharge: Stable Plan - Discharge Summary New Discharge Prescriptions: New HYDROcodone/APAP 5-325MG [Rowdy 5-325] 1 each PO Q4HR PRN #42 tab PRN Reason: Moderate Pain Ibuprofen [Motrin] 600 mg PO Q6HR PRN #60 tab PRN Reason: Mild Pain Or Fever >= 100.5 Continue Albuterol Inhaler [Ventolin Hfa Inhaler] 1 - 2 puff INHALATION RT-Q6H PRN PRN Reason: Shortness Of Breath Discharge Medication List Albuterol Inhaler [Ventolin Hfa Inhaler] 1 - 2 puff INHALATION RT-Q6H PRN [History] HYDROcodone/APAP 5-325MG [Rowdy 5-325] 1 each PO Q4HR PRN #42 tab 10/13/18 [Rx] Ibuprofen [Motrin] 600 mg PO Q6HR PRN #60 tab 10/13/18 [Rx] Follow up Appointment(s)/Referral(s): Kavitha Waller DO [Primary Care Provider] - 1 Week Activity/Diet/Wound Care/Special Instructions: Instructions 1. Do not begin any exercise program for 3 weeks. 2. Do not resume sexual relations for 3 weeks or longer if uncomfortable. 3. You may take tub baths or showers at any time. 4. You may use tampons if desired after 3 weeks. 5. Keep the area of episiotomy (stitches) clean and dry. 6. If you are not nursing, wear a good fitting, supportive bra during the day and limit fluid intake for at least 1 week to prevent breast engorgement. 7. Call the office, [phone], within the next week to make appointment for your 6 week checkup if it has not already been made. 8. Report any of the following occurrences to the doctor promptly: a. Heavy, excessive bleeding b. Chills, fever c. Burning or frequency of urination d. Pain or redness and breasts if nursing e. Increasing pain or swelling in episiotomy (stitches). In addition to the above instructions, the following additional should be followed: 1. No heavy lifting or straining (exercising) until after 6 week checkup. 2. Keep abdominal incision clean and dry: You may wear a dressing if more comfortable. 3. Make office appointment for 10 days after going home or as instructed by her doctor. Discharge Disposition: HOME SELF-CARE
[2018-10-13] MEDS: HYDROcodone/APAP 7.5-325MG 1 EACH TAB PO PRN ×2 (16:58→23:22)
[2018-10-13] MEDS: diphenhydrAMINE 50 MG CAP PO PRN (23:53)
[2018-10-14 01:10] VITALS: PULSE 74
[2018-10-14] MEDS: IBUPROFEN 600 MG TAB PO PRN ×2 (04:33→12:59)
[2018-10-14] MEDS: SENNOSIDES-DOCUSATE SODIUM 1 EACH TAB PO SCH ×2 (08:13→13:01)
[2018-10-14 08:31] VITALS: BP 141/54; TEMP 97.4
[2018-10-14] MEDS: HYDROcodone/APAP 5-325MG 1 EACH TAB PO PRN (09:00)
== END 2018-10-14 13:44 | disposition home or self-care (01) | DRG 788 ==
LOC: 4FBP 05:26
PROVIDERS: ADMIT Obstetrics & Gynecology; ATTEND Obstetrics & Gynecology
PROC: 10D00Z1 Extraction of Products of Conception, Low, Open Approach (ICD-10-PCS; principal; 2018-10-10 08:00)
DX: O34.211 Maternal care for low transverse scar from previous cesarean delivery (principal); O77.0 Labor and delivery complicated by meconium in amniotic fluid; Z3A.39 39 weeks gestation of pregnancy; Z37.0 Single live birth; Z86.19 Personal history of other infectious and parasitic diseases; O99.52 Diseases of the respiratory system complicating childbirth; J45.909 Unspecified asthma, uncomplicated; Z82.49 Family history of ischemic heart disease and other diseases of the circulatory system; Z87.891 Personal history of nicotine dependence
CPT/HCPCS: 85025; 86850; 86900; 86901; 88307

== ENCOUNTER 2019-09-09 12:14 | Outpatient (CLI) | payer OTHER ==
[2019-09-09 13:01] LABS: Appearance,Urine Clear (Clear); Bilirubin,Urine Negative (Negative); Blood,Urine Negative (Negative); Color,Urine Yellow; Glucose,Urine (UA) Negative (Negative); Ketones,Urine Negative (Negative); Leukocyte Esterase,Urine Negative (Negative); Nitrite,Urine Negative (Negative); Protein,Urine Negative (Negative); Specific Gravity,Urine 1.018 (1.001-1.035); Urobilinogen,Urine <2.0 mg/dL (<2.0)
[2019-09-09 15:15] VITALS: BP 115/63; PULSE 68; RESP 16; TEMP 98
--- NOTE | 2019-09-10 09:00 | P.MSEPDOC ---
Presenting Problems - Arrival Data Date of Arrival on Unit: 09/09/19 Time of Arrival on Unit: 12:26 Mode of Transport: EMS - Complaint OB-Reason for Admission/Chief Complaint: Other Medical History - Information : 3 Para: 2 Term: 2 : 0 Abortions: Spontaneous or Elective: 0 Number of Living Children: 2 - Gestational Age Gestational Age by JW (wks/days): 22 Weeks and 2 Days - History Complications: Prior Review of Systems - Review of Systems Constitutional: No problems Breast: No problems ENT: No problems Cardiovascular: No problems Respiratory: No problems Gastrointestinal: Diarrhea Genitourinary: No problems Musculoskeletal: No problems Neurological: No problems Skin: No problems Vital Signs - Temperature Temperature: 98 F Temperature Source: Oral - Pulse Right Brachial Pulse Rate: 68 Pulse Assessment Method: Automatic Cuff - Respirations Respiratory Rate: 16 Oxygen Delivery Method: Room Air - Blood Pressure Right Arm Blood Pressure: 115/63 Blood Pressure Mean: 80 Blood Pressure Source: Automatic Cuff Medical Screen Scoring (Pre) - Cervical Exam Dilation: 0 cm = 0 Effacement: Exam Deferred Membranes: Intact - Uterine Contractions Frequency: N/A Duration: N/A Intensity: N/A - Maternal Vital Signs Maternal Temperature: N/A Maternal Blood Pressure: N/A Signs of Preeclampsia: Nausea/Vomiting = 1 Maternal Respirations: N/A - Maternal Trauma Maternal Trauma: N/A - Assessment - Baby A Baseline FHR: 150 Position: N/A Station: N/A - Total Score - Baby A Total Score - Baby A: 1 - Total Score - Baby B Total Score - Baby B: 1 - Total Score - Baby C Total Score - Baby C: 1 - Level of Risk - Baby A Level of Risk - Baby A: Low (0-5) - Level of Risk - Baby B Level of Risk - Baby B: Low (0-5) - Level of Risk - Baby C Level of Risk - Baby C: Low (0-5) Physician Notification (Pre) - Physician Notified Physician Notified Date: 09/09/19 Physician Notified Time: 12:45 - Notification Comment Comment: receive a FFN and send to lab, check cervix restart iv and bolus with fluid and get a u/a and send to lab. and call Dr Waller with results. FNN negative cervix closed and thick and urinalysis good. iv infused in and pt taking oral and ailyn crackers with no nausea. pt has no complaints at this time. may discharge pt Disposition - Disposition OB Disposition: Discharge to home Discharge Date: 09/09/19 Discharge Time: 15:15 I agree with the RN Medical Screening Exam: Yes Risk & Benefit of care provided described in d/c instruction: Yes Diagnosis: VOMITING OF , UNSPECIFIED
== END 2019-09-09 15:15 | disposition home or self-care (01) ==
LOC: FBPOP 12:14
PROVIDERS: ATTEND Obstetrics & Gynecology
DX: O21.9 Vomiting of pregnancy, unspecified (principal); Z3A.22 22 weeks gestation of pregnancy
CPT/HCPCS: 96360; 96361; 82731; 81003; G0463; 99214

== ENCOUNTER 2020-01-03 16:06 | Inpatient (IN) | payer OTHER ==
[2020-01-03] MEDS ORDERED: CITRIC ACID-SODIUM CITRATE 15 ML CUP PO ONE (16:56)
[2020-01-03] MEDS ORDERED: LACTATED RINGERS 1,000 ML IV ONE (16:56)
--- NOTE | 2020-01-03 16:56 | P.HPOB ---
History of Present Illness H&P Date: 01/03/20 Chief Complaint: Intrauterine at term: Prolonged are ROM: Prior c-sect Patient is a 24-year-old with prior section. She is scheduled for repeat section. She relates that yesterday at approximately 1:00 her water she believed broke she's been leaking for more than 24 hours. She did call this afternoon I spoke with her and told her she did come immediately to labor and delivery for evaluation which verifies rupture membranes. Her pregn adam course was, complicated by polyhydramnios noted at approximately 24 weeks, however as the Precis progress the amniotic fluid volume decreased to a normal level and remained consistent. Her pertinent labs include O+ blood type with a antibody screen was negative. Rubella is immune, hepatitis B surface antigen/RPR/HIV as well as quadruple screen and GBS are all negative. She has no other health concerns this time. Risks/benefits/alternatives to repeat section were reviewed with patient in detail and all questions were answered for her prior to proceeding to the operative room. Past Medical History Past Medical History: Asthma History of Any Multi-Drug Resistant Organisms: ESBL Date of last positivie culture/infection: 01/11/17 MDRO Source:: ESBL URINE Past Surgical History: Section Additional Past Surgical History / Comment(s): neck tumor Past Anesthesia/Blood Transfusion Reactions: No Reported Reaction Smoking Status: Former smoker - Past Family History Mother Family Medical History: Hypertension Additional Family Medical History / Comment(s): Brain aneurysm. Medications and Allergies Home Medications Medication Instructions Recorded Confirmed Type No Known Home Medications 01/03/20 01/03/20 History Allergies Allergy/AdvReac Type Severity Reaction Status Date / Time adhesive tape Allergy Rash/Hives Verified 01/03/20 16:20 latex Allergy Rash/Hives Verified 01/03/20 16:20 tramadol AdvReac Nausea & Verified 01/03/20 16:20 Vomiting Exam Osteopathic Statement: *. No significant issues noted on an osteopathic structu ral exam other than those noted in the History and Physical/Consult. Intake and Output 01/03/20 01/03/20 01/03/20 06:59 14:59 22:59 Other: Weight 56.699 kg - OBG Physical Exam Breast: both: normal (no masses) Abdomen: bowel sounds normal, no diffuse tenderness, no bruit present, no guarding noted, no hepatomegaly, no splenomegaly, no mass Vulva: both: normal Vagina: normal moisture, no discharge Cervix: no lesion, no discharge Uterus: normal size, normal contour Adnexa: both: normal Anus/Rectum: normal perianal skin, no rectal mass, no hemorrhoids, heme negative
[2020-01-03 17:16] LABS: Basophils % (A) 1 %; Eosinophils # (A) 0.1 k/uL (0-0.7); Eosinophils % (A) 1 %; HCT 42.2 % (34.0-46.0); HGB 14.1 gm/dL (11.4-16.0); Lymphocytes # (A) 3.9 k/uL (1.0-4.8); Lymphocytes % (A) 43 %; MCH 31.2 pg (25.0-35.0); MCHC 33.5 g/dL (31.0-37.0); MCV 93.1 fL (80.0-100.0); Mean Platelet Volume 12.7; Monocytes # (A) 0.3 k/uL (0-1.0); Monocytes % (A) 3 %; Neutrophils # (A) 4.4 k/uL (1.3-7.7); Neutrophils % (A) 48 %; Platelet Count 266 k/uL (150-450); RBC 4.53 m/uL (3.80-5.40); RDW 13.6 % (11.5-15.5); WBC 9.1 k/uL (3.8-10.6)
[2020-01-03] MEDS ORDERED: ONDANSETRON 4 MG/2 ML VIAL ONE (17:50)
[2020-01-03] MEDS ORDERED: OXYTOCIN 10 UNIT/ML 1 ML VIAL ONE (17:50)
[2020-01-03] MEDS ORDERED: NALBUPHINE 10 MG/ML (1 ML AMP) ONE (17:50)
[2020-01-03] MEDS ORDERED: MORPHINE SULFATE (PF) 0.3 MG/0.3 ML SYR ONE (17:50)
[2020-01-03] MEDS ORDERED: fentaNYL (PF) 50 MCG/ML 2 ML AMP ONE (17:50)
[2020-01-03] MEDS ORDERED: KETOROLAC 30 MG/ML 1 ML VIAL ONE (17:50)
[2020-01-03] MEDS ORDERED: MORPHINE SULFATE 2 MG/ML SYRINGE IVP PRN (18:29)
[2020-01-03] MEDS ORDERED: diphenhydrAMINE 50 MG/ML 1 ML VIAL IVP PRN ×5 (18:29→18:54)
[2020-01-03] MEDS ORDERED: ONDANSETRON 4 MG/2 ML VIAL IVP PRN ×3 (18:29→18:54)
[2020-01-03] MEDS ORDERED: NALOXONE 0.4 MG/ML 1 ML VIAL IV PRN ×3 (18:29→18:54)
[2020-01-03] MEDS ORDERED: ZOLPIDEM 5 MG TAB PO PRN ×2 (18:52→18:54)
[2020-01-03] MEDS ORDERED: ACETAMINOPHEN TAB 325 MG TAB PO PRN ×2 (18:52→18:54)
[2020-01-03] MEDS ORDERED: diphenhydrAMINE 50 MG CAP PO PRN ×2 (18:52→18:54)
[2020-01-03] MEDS ORDERED: METOCLOPRAMIDE 5 MG/ML 2 ML VIAL IVP PRN ×2 (18:52→18:54)
[2020-01-03] MEDS ORDERED: IBUPROFEN 600 MG TAB PO PRN (18:54)
[2020-01-03] MEDS ORDERED: diphenhydrAMINE 25 MG CAP PO PRN (18:54)
[2020-01-03] MEDS ORDERED: LACTATED RINGERS 1,000 ML IV SCH (19:00)
--- NOTE | 2020-01-03 19:13 | P.OP ---
Date of Procedure: 01/03/20 Preoperative Diagnosis: Intrauterine term: Prior section: Prolonged rupture of membranes Postoperative Diagnosis: Same with 2 cm bladder laceration noted incidentally and repaired Procedure(s) Performed: Repeat low-transverse section with bladder laceration and repair intraoperatively Anesthesia: spinal Surgeon: Hiren Andujar Reeler Operator #1: Karlee Jaquez Estimated Blood Loss (ml): 200 IV fluids (ml): 1,100 Urine output (ml): 70 Pathology: none sent Condition: stable Disposition: floor Operative Findings: 2 cm bladder laceration was noted and repaired. Male scores of 9 and 9 at one and 5 minutes [place] and the weight was 5 lbs. 11 oz. Description of Procedure: Patient had been consented and risks benefits reviewed including bleeding and infection damage to bladder damage to bowel, nerve injuries fascia were injuries as well as others. Once spinal was placed and verified adequate anesthesia a Pfannenstiel skin incision was made removing her old scar which had hypertrophied. A second knife was then used to dissect down to the fascial layer which was then extended laterally with Khoury scissors. Superior and inferior aspect of this incision were then grasped tented up and bluntly and sharply dissected off the rectus muscles. Once this was completed blunt dissection the peritoneum was made and this opening was extended superiorly and inferiorly with visualization of both bowel bladder. Immediately upon entering into the peritoneal cavity bladder was noted to be adherent well above the lower uterine segment obscuring the uterine wall. Gentle entry into the vesicouterine peritoneum was attempted and bladder was gently dissected inferiorly. However was immediately noted at this point that the uterine wall was essentially obliterated with a window into the uterus noted anteriorly approximately 6 x 7 cm and an incision well above this line was then made in the uterus and once fully developed with hemostat was bluntly extended and head was atraumatically delivered. Nuchal cord 2 was noted and easily reduced anterior and posterior shoulders were then easily delivered followed by the remainder the baby. Mouth and nares were bulb suctioned and the cord was clamped cut usual fashion with nursery personnel present to assume care. Placenta was then delivered intact and Pitocin was added to the IV. Uterus was then exteriorized cleared of clots debris and immediately a 2 cm laceration was noted with what was essentially no uterine tissue behind the bladder. Bladder boundaries were identified and delineated with hemostats just outside of the margin areas and initially 2-0 Vicryl was used to reapproximate the bladder laceration. Once this was completed a second-degree Beata creating layer was placed with 3-0 Vicryl to obtain excellent closure. Once this was completed and with no real active bleeding noted from the uterus or the incision sterile milk of approximately 180 mL was injected retrograde into the bladder with no leaking noted from any areas of the repair. Bailey cath was then re-connected and flow of the sterile milk was noted returning through the Bailey. Continuous urine has been noted throughout the entire process and the uterine is now pink tinged otherwise clear. Uterine boundaries were then identified and with 0 Vicryl suture were reapproximated. Some of the adjacent scarring was required to help in the closure due to health in the andre of the uterus anteriorly were. No bleeding is however noted at the conclusion of the closure and bladder remains intact. Blood and debris was then suctioned from the posterior cul-de-sac and uterus was reinserted the abdomen with inspection of the laceration and repair done no leaking is noted from the bladder and incision appears intact. Fascial layer was then closed with 0 Vicryl suture in a running fashion. One layer of 3-0 Vicryl was placed in deep subcuticular tissues reapproximate skin and close space the skin was then closed with anton. Sponge, lap, needle counts were all correct 2. Patient was then taken to the recovery room in stable and satisfactory condition.
[2020-01-03] MEDS ORDERED: SENNOSIDES-DOCUSATE SODIUM 1 EACH TAB PO SCH (20:00)
[2020-01-03] MEDS: SENNOSIDES-DOCUSATE SODIUM 1 EACH TAB PO SCH (22:38)
[2020-01-04] MEDS: KETOROLAC 30 MG/ML 1 ML VIAL IVP PRN ×4 (00:28→19:49)
[2020-01-04 06:01] LABS: Basophils % (A) 0 %; Eosinophils # (A) 0.1 k/uL (0-0.7); Eosinophils % (A) 1 %; HCT 34.4 % (34.0-46.0); Lymphocytes # (A) 3.3 k/uL (1.0-4.8); Lymphocytes % (A) 35 %; MCH 30.3 pg (25.0-35.0); MCHC 32.3 g/dL (31.0-37.0); Mean Platelet Volume 12.4; Monocytes # (A) 0.3 k/uL (0-1.0); Monocytes % (A) 3 %; Neutrophils # (A) 5.4 k/uL (1.3-7.7); Neutrophils % (A) 57 %; Platelet Count 195 k/uL (150-450); RBC 3.66 m/uL (3.80-5.40); RDW 13.8 % (11.5-15.5); WBC 9.4 k/uL (3.8-10.6)
[2020-01-04 06:04] LABS: HGB 11.1 gm/dL (11.4-16.0)
--- NOTE | 2020-01-04 07:57 | P.PNOBGPC ---
Subjective - Subjective Principal diagnosis: Postop day 1 repeat section with bladder laceration Interval history: Patient seen and evaluated this morning. She is overall feeling very well. Pain is well-controlled. Vital signs are stable and afebrile. Approximately 1000 mL of urine was removed last several hours and it was very clear and light yellow. No trace of blood is noted at this time. Evaluation from urologist all pending. We'll plan very conservative management today and as long there is no other plans for intervention regular diet and increase ambulation. Patient reports: Reports appetite normal, Reports voiding normally (Bailey catheter in place and will remain in place), Reports pain well controlled, Reports ambulating normally : doing well Objective - Vital Signs Latest vital signs: Vital Signs Temp Pulse Resp BP Pulse Ox 01/04/20 05:00 16 01/04/20 04:00 98 F 64 16 139/86 100 01/04/20 03:00 16 01/04/20 01:00 16 01/04/20 00:00 98.2 F 87 16 137/85 97 01/03/20 23:15 16 01/03/20 21:29 16 01/03/20 21:01 80 16 142/93 100 01/03/20 20:35 80 16 138/85 100 01/03/20 20:01 98.4 F 74 16 135/81 100 01/03/20 19:45 69 16 143/82 100 01/03/20 19:33 79 16 139/71 100 01/03/20 19:29 16 100 01/03/20 19:15 85 16 99 01/03/20 19:00 76 16 130/62 99 01/03/20 18:55 96.8 F L 16 99 01/03/20 16:50 98.3 F 67 16 143/88 99 01/03/20 16:21 98.3 F 62 16 135/78 99 Intake and Output 01/03/20 01/04/20 01/04/20 22:59 06:59 14:59 Output Total 650 1000 Balance -650 -1000 Output: Urine 650 1000 Other: Voiding Method Indwelling Catheter Indwelling Catheter Indwelling Catheter Weight 56.699 kg - Labs Labs: Abnormal Lab Results - Last 24 Hours (Table) 01/04/20 Range/Units 05:29 RBC 3.66 L (3.80-5.40) m/uL Hgb 11.1 L D (11.4-16.0) gm/dL
[2020-01-04] MEDS: diphenhydrAMINE 25 MG CAP PO PRN (08:21)
[2020-01-04] MEDS: SENNOSIDES-DOCUSATE SODIUM 1 EACH TAB PO SCH ×2 (09:14→19:49)
[2020-01-04] MEDS: LACTATED RINGERS 1,000 ML IV SCH ×3 (09:14→19:16)
--- NOTE | 2020-01-04 17:09 | P.GSCN ---
History of Present Illness Consult date: 01/04/20 Reason for Consult: Bladder laceration Requesting physician: Hiren Andujar History of present illness: The patient is a 24-year-old woman who underwent a section yesterday. A bladder laceration was identified, and was closed in 2 layers. The bladder was subsequently filled, showing no extravasation at the site of the bladder closure. The Bailey catheter remains in place and is draining clear yellow urine. The patient denies any prior history of kidney stones or voiding dysfunction. She has been treated for recurrent UTIs in the past. Review of Systems - Constitutional Denies chills, Denies fever - Genitourinary Genitourinary: Denies flank pain, Denies hematuria Past Medical History Past Medical History: Asthma History of Any Multi-Drug Resistant Organisms: ESBL Year Discovered:: 01/11/17 MDRO Source:: ESBL URINE Past Surgical History: Section Additional Past Surgical History / Comment(s): neck tumor Past Anesthesia/Blood Transfusion Reactions: No Reported Reaction Smoking Status: Former smoker - Past Family History Mother Family Medical History: Hypertension Additional Family Medical History / Comment(s): Brain aneurysm. Medications and Allergies Home Medications Medication Instructions Recorded Confirmed Type No Known Home Medications 01/03/20 01/03/20 History Allergies Allergy/AdvReac Type Severity Reaction Status Date / Time adhesive tape Allergy Rash/Hives Verified 01/03/20 16:20 latex Allergy Rash/Hives Verified 01/03/20 16:20 tramadol AdvReac Nausea & Verified 01/03/20 16:20 Vomiting Surgical - Exam Vital Signs Temp Pulse Resp BP Pulse Ox 98.3 F 62 16 135/78 99 01/03/20 16:21 01/03/20 16:21 01/03/20 16:21 01/03/20 16:21 01/03/20 16:21 - General well developed, well nourished, no distress - Respiratory normal respiratory effort - Abdomen Abdomen: soft - Psychiatric oriented to time, oriented to person, oriented to place, speech is normal, memory intact Results - Labs 01/04/20 05:29 Abnormal Lab Results - Last 24 Hours (Table) 01/04/20 Range/Units 05:29 RBC 3.66 L (3.80-5.40) m/uL Hgb 11.1 L D (11.4-16.0) gm/dL Assessment and Plan (1) Laceration of bladder, initial encounter Current Visit: Yes Status: Acute Code(s): S37.23XA - LACERATION OF BLADDER, INITIAL ENCOUNTER SNOMED Code(s): 222288799 Plan: Continue Bailey catheter drainage. The operative note specifically states that the bladder trigone was identified and did not appear to be involved in the laceration closure. If there is any question of this, a renal ultrasound should be obtained to rule out hydronephrosis. I have ordered a serum creatinine level to be done tomorrow to assess renal function. I would also recommend a cystogram be obtained prior to Bailey catheter removal in 10-14 days. I discussed all of this with the patient in detail. Please notify me if I can be of any further assistance.
--- NOTE | 2020-01-04 19:59 | P.PN ---
Progress Note - Text 01/03 650am 24-year-old female status post with a spinal Duramorph. Patient seen and evaluated this morning for postop pain control, patient has a VAS of 3. No complains of pruritus but she did have complains of nausea and vomiting. Doing better this morning
[2020-01-04] MEDS: HYDROcodone/APAP 7.5-325MG 1 EACH TAB PO PRN (21:30)
[2020-01-05] MEDS: SIMETHICONE 80 MG CHEWABLE PO PRN (00:28)
[2020-01-05] MEDS: CEPHALEXIN 500 MG CAP PO SCH ×5 (00:54→23:33)
[2020-01-05] MEDS: IBUPROFEN 600 MG TAB PO PRN ×4 (02:04→23:33)
[2020-01-05] MEDS: HYDROcodone/APAP 7.5-325MG 1 EACH TAB PO PRN ×2 (04:49→19:13)
[2020-01-05 06:32] LABS: Calcium 9.2 mg/dL (8.4-10.2); Potassium 4.2 mmol/L (3.5-5.1)
[2020-01-05] MEDS: SENNOSIDES-DOCUSATE SODIUM 1 EACH TAB PO SCH (08:26)
--- NOTE | 2020-01-05 08:42 | P.PNOBGPC ---
Subjective - Subjective Principal diagnosis: Postop day 2 Interval history: Overall Ms. Rod is doing well. She is ambulating, voiding and tolerating her diet. Her incision is otherwise clean dry and intact. She is appropriate urine output which is clear and light yellow. Creatinine this morning was 1.02 which is still in the normal range. May need to repeat tomorrow versus cystogram prior to discharge to verify not obstructed ureters. Urology consultation reviewed. Will discuss with urology today. Vital signs are stable and she is afebrile. Heart regular, lungs clear, extremities without pain. Abdomen is overall soft with firm uterus and lochia that is reported to be light. Assessment postop day 2 with history of bladder laceration Plan as above Objective - Vital Signs Latest vital signs: Vital Signs Temp Pulse Resp BP Pulse Ox 01/05/20 08:00 98.2 F 58 L 18 120/75 100 01/05/20 05:00 14 01/05/20 02:23 14 01/05/20 01:00 14 01/05/20 00:00 98.4 F 55 L 14 157/98 100 01/04/20 23:00 14 01/04/20 21:00 14 01/04/20 19:00 16 01/04/20 17:00 16 01/04/20 16:00 98.1 F 54 L 16 143/93 98 01/04/20 15:00 15 01/04/20 13:00 15 98 01/04/20 12:00 98.7 F 55 L 15 133/80 100 01/04/20 11:00 15 Intake and Output 01/04/20 01/05/20 01/05/20 22:59 06:59 14:59 Output Total 600 300 Balance -600 -300 Output: Urine 600 300 Other: Voiding Method Indwelling Catheter Indwelling Catheter - Labs Labs: Abnormal Lab Results - Last 24 Hours (Table) 01/05/20 Range/Units 05:23 Sodium 133 L (137-145) mmol/L Glucose 56 L (74-99) mg/dL
--- NOTE | 2020-01-05 10:36 | US ---
EXAMINATION TYPE: US kidneys/renal and bladder DATE OF EXAM: 01/05/2020 COMPARISON: NONE CLINICAL HISTORY: hydronephrosis. EXAM MEASUREMENTS: Right Kidney: 10.7 x 3.0 x 4.8 cm Left Kidney: 10.1 x 4.5 x 4.5 cm Right Kidney: No hydronephrosis or masses seen Left Kidney: 2mm echogenic focus seen mid/medial, no hydronephrosis Bladder: not distended, ortega No evident renal mass. The kidneys show normal cortical medullary differentiation. There is no ascites in Morison's pouch. IMPRESSION: Echogenic focus left kidney could represent a nonobstructive calculus.
--- NOTE | 2020-01-05 15:44 | P.PN ---
Progress Note - Text Progress Note Date: 01/05/20 Ms. Rod's Bailey catheter continues to drain clear yellow urine. Her serum creatinine level today was 1.02. A renal ultrasound was obtained, showing no evidence of hydronephrosis. I was suggested a cystogram be obtained prior to Bailey catheter removal 10-14 days postoperatively. Please notify me if I can be of any further assistance.
[2020-01-05] MEDS: diphenhydrAMINE 25 MG CAP PO PRN (21:13)
[2020-01-06] MEDS: SENNOSIDES-DOCUSATE SODIUM 1 EACH TAB PO SCH ×3 (00:05→21:51)
[2020-01-06] MEDS: HYDROcodone/APAP 7.5-325MG 1 EACH TAB PO PRN ×3 (01:11→18:06)
[2020-01-06] MEDS: IBUPROFEN 600 MG TAB PO PRN ×3 (05:46→21:51)
[2020-01-06] MEDS: CEPHALEXIN 500 MG CAP PO SCH ×3 (05:46→18:30)
[2020-01-06] MEDS: SIMETHICONE 80 MG CHEWABLE PO PRN (07:47)
[2020-01-06 08:08] LABS: African American GFR (CKD) >90 (>60 ml/min/1.73 sqM); Albumin 3.2 g/dL (3.5-5.0); Anion Gap 6 mmol/L; Blood Urea Nitrogen 8 mg/dL (7-17); Carbon Dioxide 25 mmol/L (22-30); Chloride 103 mmol/L (98-107); Glucose 67 mg/dL (74-99); Non-African American GFR(CKD) 87 (>60 ml/min/1.73 sqM); Potassium 4.4 mmol/L (3.5-5.1); Sodium 134 mmol/L (137-145)
--- NOTE | 2020-01-06 08:16 | P.PNOBGPC ---
Subjective - Subjective Patient reports: Reports appetite normal, Reports voiding normally, Reports pain well controlled, Reports ambulating normally : doing well Objective - Vital Signs Latest vital signs: Vital Signs Temp Pulse Resp BP Pulse Ox 01/06/20 05:00 16 01/06/20 03:00 16 01/06/20 01:00 16 01/06/20 00:00 98.3 F 69 16 134/73 99 01/05/20 23:00 16 01/05/20 21:00 16 01/05/20 18:08 16 01/05/20 17:00 16 01/05/20 15:53 97.9 F 61 16 123/79 99 01/05/20 15:00 16 01/05/20 13:00 18 01/05/20 11:00 16 01/05/20 09:00 16 Intake and Output 01/05/20 01/06/20 01/06/20 22:59 06:59 14:59 Output Total 1000 850 Balance -1000 -850 Output: Urine 1000 850 Other: Voiding Method Indwelling Catheter - Exam Lungs: bilateral: normal Chest: Normal S1, Normal S2 Extremities: Present: normal Abdomen: Present: normal appearance, soft. Absent: distention, tenderness Incision: Present: normal, dry, intact Uterus: Present: normal, firm - Labs Labs: Abnormal Lab Results - Last 24 Hours (Table) 01/06/20 Range/Units 07:36 Sodium 134 L (137-145) mmol/L Glucose 67 L (74-99) mg/dL Albumin 3.2 L (3.5-5.0) g/dL Assessment and Plan Assessment: Postoperative day #3. Patient is resting without new complaints however she does complain that the catheter appears to be irritating her quite a bit. She is having excellent urine output and evaluation yesterday included a renal ultrasound which appear normal and a creatinine of 1.02. Dr. Mijares did see the patient last evening and has recommended a follow-up cystogram at approximately 10-14 days. I repeated her creatinine this morning was 0.92. Patient is tolerating regular diet and other than bladder discomfort she is feeling well. Plan today is to continue routine postoperative care and I want her to try to use her leg bag because she will go home tomorrow and need to have the catheter in for 10-14 days. She understands this. Otherwise continue routine postoperative care. (1) delivery delivered Current Visit: No Status: Acute Code(s): O82 - ENCOUNTER FOR DELIVERY WITHOUT INDICATION SNOMED Code(s): 829578900 (2) Laceration of bladder, initial encounter Current Visit: Yes Status: Acute Code(s): S37.23XA - LACERATION OF BLADDER, INITIAL ENCOUNTER SNOMED Code(s): 397216905
[2020-01-06] MEDS: diphenhydrAMINE 25 MG CAP PO PRN (10:57)
[2020-01-07] MEDS: CEPHALEXIN 500 MG CAP PO SCH ×3 (00:01→12:26)
[2020-01-07] MEDS: IBUPROFEN 600 MG TAB PO PRN ×2 (03:33→10:13)
[2020-01-07] MEDS: HYDROcodone/APAP 7.5-325MG 1 EACH TAB PO PRN ×3 (06:05→12:26)
--- NOTE | 2020-01-07 06:36 | P.PNOBGPC ---
Subjective - Subjective Patient reports: Reports appetite normal, Reports voiding normally, Reports pain well controlled, Reports ambulating normally : doing well Objective - Vital Signs Latest vital signs: Vital Signs Temp Pulse Resp BP Pulse Ox 01/06/20 23:50 98.3 F 62 14 109/67 100 01/06/20 15:46 98.6 F 71 16 119/76 01/06/20 08:00 98.0 F 88 16 142/90 Intake and Output 01/06/20 01/06/20 01/07/20 14:59 22:59 06:59 Output Total 800 1100 500 Balance -800 -1100 -500 Output: Urine 800 1100 500 - Exam Lungs: bilateral: normal Chest: Normal S1, Normal S2 Extremities: Present: normal Abdomen: Present: normal appearance, soft. Absent: distention, tenderness Incision: Present: normal, dry, intact Uterus: Present: normal, firm - Labs Labs: Abnormal Lab Results - Last 24 Hours (Table) 01/06/20 Range/Units 07:36 Sodium 134 L (137-145) mmol/L Glucose 67 L (74-99) mg/dL Albumin 3.2 L (3.5-5.0) g/dL Assessment and Plan Assessment: Postoperative day #4. Patient is resting without new complaints. Vital signs are stable she's afebrile. Uterus is firm nontender and her incision is intact and dry. Patient's having excellent urine output. Patient is now functioning well with her leg bag. Plan today is to discharge home and she'll follow up with Dr. Rodgers has scheduled to remove her catheter in for a postop check. I did send in a 10 day course of antibiotics while she has indwelling catheter. (1) delivery delivered Current Visit: No Status: Acute Code(s): O82 - ENCOUNTER FOR DELIVERY WITHOUT INDICATION SNOMED Code(s): 791137570 (2) Laceration of bladder, initial encounter Current Visit: Yes Status: Acute Code(s): S37.23XA - LACERATION OF BLADDER, INITIAL ENCOUNTER SNOMED Code(s): 822959589
--- NOTE | 2020-01-07 06:40 | P.DS ---
Providers Date of admission: 01/03/20 16:33 Expected date of discharge: 01/07/20 Attending physician: Hiren Andujar Consults: 01/03/20 18:56 Consult Physician Urgent Consulting Provider: Kayode Lewis Consult Reason/Comments: bladder laceration Do you want consulting provider notified?: Already Contacted Primary care physician: Stated None - Discharge Diagnosis(es) (1) delivery delivered Current Visit: No Status: Acute (2) Laceration of bladder, initial encounter Current Visit: Yes Status: Acute Hospital Course: Please see dictated H&P and operative note per Dr. Andujar of this patient's admission. Brief summary this is a pleasant 24-year-old 4 para 2 female who is admitted to the hospital with spontaneous rupture membranes and history of previous section. Patient undergoes a repeat section for a viable male infant. Please see dictated operative note. Of note patient's surgery was complicated by a bladder laceration that was recognized and repaired at the time of her surgery. Postoperatively the patient did have a urology consultation. Patient did very well postoperatively and on postoperative day #4 spell to be stable for discharge home follow up with Dr. Andujar for incision check and catheter removal. Procedures: Repeat low transverse section and repair of bladder laceration. Patient Condition at Discharge: Good Plan - Discharge Summary New Discharge Prescriptions: New Ibuprofen [Motrin] 600 mg PO Q6HR PRN #30 tab PRN Reason: Pain HYDROcodone/APAP 5-325MG [[place] 5-325] 1 tab PO Q4HR PRN #30 tab PRN Reason: Pain Cephalexin [Keflex] 500 mg PO Q6H 10 Days #40 cap Discharge Medication List HYDROcodone/APAP 5-325MG [[place] 5-325] 1 tab PO Q4HR PRN #30 tab 01/05/20 [Rx] Ibuprofen [Motrin] 600 mg PO Q6HR PRN #30 tab 01/05/20 [Rx] Cephalexin [Keflex] 500 mg PO Q6H 10 Days #40 cap 01/07/20 [Rx] Follow up Appointment(s)/Referral(s): Hiren Andujar DO [Doctor of Osteopathic Medicine] - 01/15/20 9:00 am (Patient also has a visit on February 15 at 11 AM.) Patient Instructions/Handouts: Bailey Catheter Placement and Care (DC), C- Section (DC) Activity/Diet/Wound Care/Special Instructions: No heavy lifting, limit stairs and driving, pelvic rest. If any high temperatures, heavy bleeding, or severe pain call my office. Maintain Bailey catheter for 10 days and then we will likely remove at that time. Discharge Disposition: HOME SELF-CARE
[2020-01-07 08:00] VITALS: RESP 16
[2020-01-07] MEDS: SENNOSIDES-DOCUSATE SODIUM 1 EACH TAB PO SCH (10:13)
[2020-01-07 11:39] VITALS: BP 117/72; PULSE 76; TEMP 98.1
== END 2020-01-07 14:50 | disposition home or self-care (01) | DRG 787 ==
LOC: FBPOP 16:06 → 4FBP 16:33
PROVIDERS: ADMIT Obstetrics & Gynecology; ATTEND Obstetrics & Gynecology
PROC: 0TQB0ZZ Repair Bladder, Open Approach (ICD-10-PCS; principal; 2020-01-03 18:09)
PROC: 10D00Z1 Extraction of Products of Conception, Low, Open Approach (ICD-10-PCS; principal; 2020-01-03 18:09)
DX: O34.211 Maternal care for low transverse scar from previous cesarean delivery (principal); S37.23XA Laceration of bladder, initial encounter; O99.52 Diseases of the respiratory system complicating childbirth; J45.909 Unspecified asthma, uncomplicated; Z37.0 Single live birth; O42.12 Full-term premature rupture of membranes, onset of labor more than 24 hours following rupture; Z82.49 Family history of ischemic heart disease and other diseases of the circulatory system; Z87.440 Personal history of urinary (tract) infections; Z87.891 Personal history of nicotine dependence; O69.81X0 Labor and delivery complicated by cord around neck, without compression, not applicable or unspecified; Z88.5 Allergy status to narcotic agent; Z91.040 Latex allergy status
CPT/HCPCS: 59025; 76770; 80048; 80069; 84112; 85025; 86850; 86900; 86901; 99213

== ENCOUNTER → 2020-01-12 | Outpatient (CLI) | payer OTHER ==
--- NOTE | 2020-01-12 20:11 | FL ---
EXAMINATION TYPE: FL voiding cystourethrogram DATE OF EXAM: 01/12/2020 COMPARISON: Renal ultrasound dated 01/05/2020 HISTORY: Bladder laceration during on 01/03/2020. Indwelling catheter. TECHNIQUE: The study was explained to the patient and history was elicited. A catheter was in place before the examination. 300 mL of contrast was utilized to fill the urinary bladder through the jose ter in a retrograde fashion. 1 minute and 39 seconds of fluoroscopy time was utilized with 43 fluoros copic images saved. FINDINGS: The preventative maintenance technician fluoroscopic image of the pelvis demonstrated no acute intrapelvic or intra-abdom inal pathology. After the urinary bladder was completely distended, oblique, lateral and frontal radiographs were obt ained. A cleft is seen in the urinary bladder dome that may relate to the patient's site of bladder l aceration. No contrast extravasation is seen from this location or the remainder of the bladder throu ghout the examination. The remainder of the bladder wall demonstrates a smooth contour without eviden ce of focal abnormal outpouching, extrinsic impression or contrast extravasation. There was no visua lized evidence of vesiculo-ureteral reflux. No post void residual contrast visualized. There is no evidence of extravasation of contrast outside the bowel lumen visualized on the post void fluoroscopi c images. The catheter was removed after the examination as no leak was present. IMPRESSION: Cystogram as detailed above without evidence of leak.
== END | disposition home or self-care (01) ==
LOC: EDSTATUS 09:00 → RADFLWHC 09:03
PROVIDERS: ATTEND Obstetrics & Gynecology
DX: S37.23XA Laceration of bladder, initial encounter (principal)
CPT/HCPCS: 74455

== ENCOUNTER → 2020-10-03 | Outpatient (CLI) | payer OTHER ==
--- NOTE | 2020-10-03 12:15 | MR ---
MRI CERVICAL SPINE: CLINICAL HISTORY: occipital neuralgia per order. Headache with neck pain for 5 years per patient. His tory of prior tumor surgical removal per patient. TECHNIQUE: Multiplanar, multisequence imaging of the cervical spine is performed without and with IV contrast, 4.5 cc of gadolinium was given intravenously. COMPARISON: None. FINDINGS: Exam slightly suboptimal as there is some motion artifact and rotation. Sagittal images of the cervical spine show the craniocervical junction to appear within normal limits. The cervical and upper thoracic spinal cord is normal in course, caliber, and signal. Alignment is straightened. Slig ht grade 1 retrolisthesis C5 on C6 and C6-C7. The vertebral body heights are normal. There is modera te disc space narrowing C3-C4 level with possibly some posterior ossific fusion. There is nonvisualiz ation suspected surgical absence of at least part of the C3 spinous process. The bone marrow signal i ntensity is within normal limits. No suspicious postcontrast enhancement. Small area of nonenhancemen t posterior pituitary gland sagittal image 8 corresponds to T1 hyperintense and T2 hypointense area. Cannot exclude microadenoma. Correlate clinically. Axial images show C2-C3 level to appear within normal limits. Axial images at the C3-C4 level also unremarkable. Axial images at the C4-C5 level mild broad disc protrusion minimally effacing the anterior thecal sac , patent bilateral neural foramina. Axial images at C5-C6 and C6-C7 level appear within normal limits. Axial images at C7-T1 level appear unremarkable. IMPRESSION: Loss of normal cervical curvature with mild multilevel degenerative changes as detailed a ramesh.
== END | disposition home or self-care (01) ==
LOC: RADMRIMAIN 10:54
PROVIDERS: ATTEND Psychiatry & Neurology Neurology
DX: M47.812 Spondylosis without myelopathy or radiculopathy, cervical region (principal); M50.90 Cervical disc disorder, unspecified, unspecified cervical region
CPT/HCPCS: 72156; A9585

== ENCOUNTER → 2020-11-07 | Outpatient (CLI) | payer OTHER ==
--- NOTE | 2020-11-07 18:37 | MR ---
EXAMINATION TYPE: MR pituitary wo/w con DATE OF EXAM: 11/07/2020 COMPARISON: Correlation MRI cervical spine 10/03/2020 HISTORY: 24-year-old female Abnormality seen on Cspine MRI. Pituitary abnormality. Memory issues. TECHNIQUE: Multiplanar, multisequence images of the sella were obtained before and after administrati on of 4.5 mL intravenous Gadavist gadolinium contrast. FINDINGS: The sella turcica is not enlarged. The pituitary gland is upper limits of normal in size at 8 mm craniocaudal. In addition, there is a T 2 hypointense and T1 bright lesion within the posterior pituitary measuring explained 7 mm craniocau stefani by 3.0 mm AP by 8.6 mm wide. Postcontrast sequences show no significant enhancement. There is no suprasellar mass. The pituitary stalk is seen enhancing with contrast and is not displaced. The optic chiasm and anterior third ventricle are well visualized and not displaced or compressed. Normal variation of persistent CSP. IMPRESSION: A T2 dark and T1 bright lesion measuring 8.6 mm within the posterior pituitary gland. Postcontrast im ages showed no significant enhancement. 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 Hemorrhage within a pituita ry microadenoma is less likely given the lack of appreciable enhancement and can be excluded with tarun ropriate laboratory assessment. Consider 6-12 month follow-up to reassess.
== END | disposition home or self-care (01) ==
LOC: RADMRIMAIN 12:40
PROVIDERS: ATTEND Psychiatry & Neurology Neurology
DX: E23.6 Other disorders of pituitary gland (principal)
CPT/HCPCS: 70553; A9585

== ENCOUNTER 2021-08-19 21:44 | Emergency (ER) | payer OTHER ==
[2021-08-19 21:59] VITALS: TEMP 98.7
[2021-08-19] MEDS ORDERED: SODIUM CHLORIDE 0.9% 1,000 ML IV STA (22:37)
[2021-08-19] MEDS ORDERED: ONDANSETRON 4 MG/2 ML VIAL IVP STA (22:37)
[2021-08-19 22:59] LABS: Basophils # (A) 0.1 k/uL (0-0.2); Basophils % (A) 1 %; Eosinophils # (A) 0.2 k/uL (0-0.7); Eosinophils % (A) 2 %; HCT 38.2 % (34.0-46.0); HGB 13.2 gm/dL (11.4-16.0); Lymphocytes # (A) 2.6 k/uL (1.0-4.8); Lymphocytes % (A) 24 %; MCH 32.3 pg (25.0-35.0); MCHC 34.5 g/dL (31.0-37.0); MCV 93.5 fL (80.0-100.0); Mean Platelet Volume 8.9; Monocytes # (A) 0.3 k/uL (0-1.0); Monocytes % (A) 3 %; Neutrophils # (A) 7.7 k/uL (1.3-7.7); Neutrophils % (A) 70 %; Platelet Count 314 k/uL (150-450); RBC 4.08 m/uL (3.80-5.40); RDW 12.7 % (11.5-15.5)
[2021-08-19 23:14] LABS: ALT 23 U/L (4-34); AST 26 U/L (14-36); African American GFR (CKD) >90 (>60 ml/min/1.73 sqM); Albumin 5.1 g/dL (3.5-5.0); Alkaline Phosphatase 48 U/L (38-126); Anion Gap 17 mmol/L; Blood Urea Nitrogen 9 mg/dL (7-17); Calcium 10.5 mg/dL (8.4-10.2); Carbon Dioxide 18 mmol/L (22-30); Chloride 104 mmol/L (98-107); Glucose 157 mg/dL (74-99); Non-African American GFR(CKD) 87 (>60 ml/min/1.73 sqM); Sodium 139 mmol/L (137-145); Total Bilirubin 0.6 mg/dL (0.2-1.3)
[2021-08-19 23:18] LABS: Appearance,Urine Clear (Clear); Bacteria,Urine Rare /hpf; Bilirubin,Urine Negative (Negative); Blood,Urine Negative (Negative); Color,Urine Yellow; Glucose,Urine (UA) Negative (Negative); Ketones,Urine 2+ (Negative); Leukocyte Esterase,Urine Negative (Negative); Mucus,Urine Many /hpf; Nitrite,Urine Negative (Negative); Protein,Urine 1+ (Negative); RBC,Urine 2 /hpf (0-5); Squamous Epithelial Cell,Urine 3 /hpf (0-4); WBC,Urine 1 /hpf (0-5)
[2021-08-19] MEDS ORDERED: KETOROLAC 30 MG/ML 1 ML VIAL IVP STA (23:33)
[2021-08-19] MEDS ORDERED: METOCLOPRAMIDE 5 MG/ML 2 ML VIAL IVP STA (23:36)
--- NOTE | 2021-08-19 23:57 | ED ---
General Adult HPI - General Chief complaint: Nausea/Vomiting/Diarrhea Stated complaint: Vomiting Time Seen by Provider: 08/19/21 22:21 Source: patient, RN notes reviewed Mode of arrival: ambulatory Limitations: no limitations - History of Present Illness Initial comments: 25-year-old female presents to the emergency department for evaluation of abdominal pain, nausea and vomiting. Patient states her symptoms began approximately 4 hours ago after taking a bite of chili. Patient locates pain to the right upper quadrant and right flank. States pain is constant and worsens without warning. Reports multiple episodes of vomiting; also has had an episode of diarrhea. States her daughter is hospitalized upstairs with a double ear infection and vomiting. Denies fever, headache, chest pain, shortness of breath, difficulty breathing, dysuria, or hematuria. - Related Data Previous Rx's Medication Instructions Recorded HYDROcodone/APAP 5-325MG [Tea 1 tab PO Q4HR PRN #30 tab 01/05/20 5-325] Ibuprofen [Motrin] 600 mg PO Q6HR PRN #30 tab 01/05/20 Cephalexin [Keflex] 500 mg PO Q6H 10 Days #40 cap 01/07/20 Allergies Allergy/AdvReac Type Severity Reaction Status Date / Time adhesive tape Allergy Rash/Hives Verified 08/19/21 21:56 latex Allergy Rash/Hives Verified 08/19/21 21:56 tramadol AdvReac Nausea & Verified 08/19/21 21:56 Vomiting Review of Systems ROS Statement: Those systems with pertinent positive or pertinent negative responses have been documented in the HPI. ROS Other: All systems not noted in ROS Statement are negative. Past Medical History Past Medical History: Asthma Additional Past Medical History / Comment(s): migraines History of Any Multi-Drug Resistant Organisms: ESBL Date of last positivie culture/infection: 01/11/17 MDRO Source:: ESBL URINE Past Surgical History: Section Additional Past Surgical History / Comment(s): neck tumor Past Anesthesia/Blood Transfusion Reactions: No Reported Reaction Past Psychological History: Depression Smoking Status: Former smoker Past Alcohol Use History: None Reported Past Drug Use History: Marijuana - Past Family History Mother Family Medical History: Hypertension Additional Family Medical History / Comment(s): Brain aneurysm. General Exam Limitations: no limitations General appearance: alert, other (This is a well-developed, well-nourished female who appears moderately uncomfortable. Initial temperature 98.7, pulse 111, respirations 20, blood pressure 121/83, pulse ox 98% on room air.) ENT exam: Present: normal exam, normal oropharynx, mucous membranes moist Respiratory exam: Present: normal lung sounds bilaterally. Absent: respiratory distress, wheezes, rales, rhonchi, stridor Cardiovascular Exam: Present: regular rate, normal rhythm, normal heart sounds. Absent: systolic murmur, diastolic murmur, rubs, gallop, clicks GI/Abdominal exam: Present: soft, tenderness (Right upper quadrant tenderness along the rib border upon palpation), normal bowel sounds, other (Patient having multiple episodes of small amounts of emesis that is clear and frothy). Absent: guarding, rebound Back exam: Present: CVA tenderness (R). Absent: CVA tenderness (L) Neurological exam: Present: alert, oriented X3 Psychiatric exam: Present: anxious Skin exam: Present: warm, dry, intact, normal color Course Vital Signs 08/19/21 08/20/21 21:56 01:04 Temperature 98.7 F Pulse Rate 111 H 72 Respiratory 20 12 Rate Blood Pressure 121/83 122/83 O2 Sat by Pulse 98 100 Oximetry - Reevaluation(s) Reevaluation #1: 08/20/21 00:23 Upon return from ultrasound, patient had one episode of vomiting. Medical Decision Making - Medical Decision Making This is a 25-year-old female who is evaluated for abdominal pain, nausea, and vomiting. Upon exam, patient appears moderately uncomfortable and is very restless. Continues to have multiple episodes of vomiting. An IV was inserted and patient was given fluids for hydration and Zofran though had minimal improvement. Was given Reglan, Benadryl, and Toradol with more improvement. Laboratory studies were obtained showing patient is hypokalemic, potassium of 3.0, and mildly dehydrated 2+ ketones in urine. WBCs slightly elevated p resumably from vomiting. Potassium was supplemented orally, which patient was able to tolerate along with ice chips and juice. Physical exam shows right upper quadrant abdominal tenderness upon palpation of the lower rib border; mild right flank pain. Patient is restless and anxious; she is unable to find a position of comfort; states she just wants a hot shower. States she is concerned about her daughter who is upstairs as an inpatient and is wanting to get back to her. Ultrasound of the right upper abdominal quadrant shows no significant findings. Patient will be discharged with a starter pack of Zofran so that she may return to her daughter care. Patient was instructed to follow up with her primary care provider at a more convenient time. Return parameters were discussed in detail. Patient verbalizes understanding and agrees with this plan. This patient's care was discussed with my attending Dr. Rios. - Lab Data Result diagrams: 08/19/21 22:51 08/19/21 22:51 Lab Results 08/19/21 08/19/21 08/19/21 Range/Units 22:51 22:51 22:51 WBC 11.0 H (3.8-10.6) k/uL RBC 4.08 (3.80-5.40) m/uL Hgb 13.2 (11.4-16.0) gm/dL Hct 38.2 (34.0-46.0) % MCV 93.5 (80.0-100.0) fL MCH 32.3 (25.0-35.0) pg MCHC 34.5 (31.0-37.0) g/dL RDW 12.7 (11.5-15.5) % Plt Count 314 (150-450) k/uL MPV 8.9 Neutrophils % 70 % Lymphocytes % 24 % Monocytes % 3 % Eosinophils % 2 % Basophils % 1 % Neutrophils # 7.7 (1.3-7.7) k/uL Lymphocytes # 2.6 (1.0-4.8) k/uL Monocytes # 0.3 (0-1.0) k/uL Eosinophils # 0.2 (0-0.7) k/uL Basophils # 0.1 (0-0.2) k/uL Sodium (137-145) mmol/L Potassium (3.5-5.1) mmol/L Chloride (98-107) mmol/L Carbon Dioxide (22-30) mmol/L Anion Gap mmol/L BUN (7-17) mg/dL Creatinine (0.52-1.04) mg/dL Est GFR (CKD-EPI)AfAm (>60 ml/min/1.73 sqM) Est GFR (CKD-EPI)NonAf (>60 ml/min/1.73 sqM) Glucose (74-99) mg/dL Calcium (8.4-10.2) mg/dL Total Bilirubin (0.2-1.3) mg/dL AST (14-36) U/L ALT (4-34) U/L Alkaline Phosphatase (38-126) U/L Total Protein (6.3-8.2) g/dL Albumin (3.5-5.0) g/dL Lipase (23-300) U/L Urine Color Yellow Urine Appearance Clear (Clear) Urine pH 8.0 (5.0-8.0) Ur Specific [place] 1.030 (1.001-1.035) Urine Protein 1+ H (Negative) Urine Glucose (UA) Negative (Negative) Urine Ketones 2+ H (Negative) Urine Blood Negative (Negative) Urine Nitrite Negative (Negative) Urine Bilirubin Negative (Negative) Urine Urobilinogen 4.0 (<2.0) mg/dL Ur Leukocyte Esterase Negative (Negative) Urine RBC 2 (0-5) /hpf Urine WBC 1 (0-5) /hpf Ur Squamous Epith Cells 3 (0-4) /hpf Urine Bacteria Rare H (None) /hpf Urine Mucus Many H (None) /hpf Urine HCG, Qual Not Detected (Not Detectd) Urine Opiates Screen (NotDetected) Ur Oxycodone Screen (NotDetected) Urine Methadone Screen (NotDetected) Ur Propoxyphene Screen (NotDetected) Ur Barbiturates Screen (NotDetected) U Tricyclic Antidepress (NotDetected) Ur Phencyclidine Scrn (NotDetected) Ur Amphetamines Screen (NotDetected) U Methamphetamines Scrn (NotDetected) U Benzodiazepines Scrn (NotDetected) Urine Cocaine Screen (NotDetected) U Marijuana (THC) Screen (NotDetected) 08/19/21 08/19/21 08/20/21 Range/Units 22:51 22:57 00:00 WBC (3.8-10.6) k/uL RBC (3.80-5.40) m/uL Hgb (11.4-16.0) gm/dL Hct (34.0-46.0) % MCV (80.0-100.0) fL MCH (25.0-35.0) pg MCHC (31.0-37.0) g/dL RDW (11.5-15.5) % Plt Count (150-450) k/uL MPV Neutrophils % % Lymphocytes % % Monocytes % % Eosinophils % % Basophils % % Neutrophils # (1.3-7.7) k/uL Lymphocytes # (1.0-4.8) k/uL Monocytes # (0-1.0) k/uL Eosinophils # (0-0.7) k/uL Basophils # (0-0.2) k/uL Sodium 139 (137-145) mmol/L Potassium 3.0 L (3.5-5.1) mmol/L Chloride 104 (98-107) mmol/L Carbon Dioxide 18 L (22-30) mmol/L Anion Gap 17 mmol/L BUN 9 (7-17) mg/dL Creatinine 0.92 (0.52-1.04) mg/dL Est GFR (CKD-EPI)AfAm >90 (>60 ml/min/1.73 sqM) Est GFR (CKD-EPI)NonAf 87 (>60 ml/min/1.73 sqM) Glucose 157 H (74-99) mg/dL Calcium 10.5 H (8.4-10.2) mg/dL Total Bilirubin 0.6 (0.2-1.3) mg/dL AST 26 (14-36) U/L ALT 23 (4-34) U/L Alkaline Phosphatase 48 (38-126) U/L Total Protein 8.0 (6.3-8.2) g/dL Albumin 5.1 H (3.5-5.0) g/dL Lipase 27 (23-300) U/L Urine Color Urine Appearance (Clear) Urine pH (5.0-8.0) Ur Specific [place] (1.001-1.035) Urine Protein (Negative) Urine Glucose (UA) (Negative) Urine Ketones (Negative) Urine Blood (Negative) Urine Nitrite (Negative) Urine Bilirubin (Negative) Urine Urobilinogen (<2.0) mg/dL Ur Leukocyte Esterase (Negative) Urine RBC (0-5) /hpf Urine WBC (0-5) /hpf Ur Squamous Epith Cells (0-4) /hpf Urine Bacteria (None) /hpf Urine Mucus (None) /hpf Urine HCG, Qual (Not Detectd) Urine Opiates Screen Not Detected (NotDetected) Ur Oxycodone Screen Not Detected (NotDetected) Urine Methadone Screen Not Detected (NotDetected) Ur Propoxyphene Screen Not Detected (NotDetected) Ur Barbiturates Screen Not Detected (NotDetected) U Tricyclic Antidepress Not Detected (NotDetected) Ur Phencyclidine Scrn Not Detected (NotDetected) Ur Amphetamines Screen Not Detected (NotDetected) U Methamphetamines Scrn Not Detected (NotDetected) U Benzodiazepines Scrn Not Detected (NotDetected) Urine Cocaine Screen Not Detected (NotDetected) U Marijuana (THC) Screen Detected H (NotDetected) - Radiology Data Radiology results: report reviewed, image reviewed Ultrasound of the right upper abdomen was obtained. Report was reviewed in its entirety. Impression per Dr. Corrales is normal exam. No gallstones or dilated ducts. No free fluid. Disposition Clinical Impression: Vomiting and diarrhea, Hypokalemia, Mild dehydration Disposition: HOME SELF-CARE Condition: Stable Instructions (If sedation given, give patient instructions): Hypokalemia (ED), Acute Nausea and Vomiting (ED), Acute Diarrhea (ED) Additional Instructions: Rest. Increase fluids. Eat small frequent meals that are well-tolerated. Take Zofran as needed for nausea. Follow-up with your primary care provider for a recheck. Emergency department with any new, worsening, or concerning symptoms. Is patient prescribed a controlled substance at d/c from ED?: No Referrals: Rosanna Blackburn MD [Primary Care Provider] - 1-2 days Time of Disposition: 01:31
--- NOTE | 2021-08-20 00:50 | US ---
EXAMINATION TYPE: US abdomen limited DATE OF EXAM: 08/20/2021 COMPARISON: US CLINICAL HISTORY: RUQ abdominal pain, n/v. RUQ abdominal pain, N/V. EXAM MEASUREMENTS: Liver Length: 13.2 cm Gallbladder Wall: 0.14 cm CBD: 0.21 cm Right Kidney: 9.5 x 5.2 x 3.6 cm Slightly limited due to gas and constant patient movement. Pancreas: Appears wnl. Liver: Appears wnl. Gallbladder: Folds seen. Measures 7.7 cm in length and 3.0 cm in width. Evidence for sonographic Bhagat's sign: No. CBD: Appears wnl. Right Kidney: No hydronephrosis or masses seen. Pyramids appear prominent. IMPRESSION: Normal exam. No gallstones or dilated ducts. No free fluid.
[2021-08-20] MEDS ORDERED: diphenhydrAMINE 50 MG/ML 1 ML VIAL IVP STA (00:55)
[2021-08-20 01:06] VITALS: BP 122/83; PULSE 72; RESP 12
[2021-08-20 01:22] LABS: Amphetamine Screen,Urine Not Detected (NotDetected); Barbiturate Screen,Urine Not Detected (NotDetected); Benzodiazepines Screen,Urine Not Detected (NotDetected); Cocaine Screen,Urine Not Detected (NotDetected); Methadone Screen, Urine Not Detected (NotDetected); Opiate Screen,Urine Not Detected (NotDetected); Oxycodone Screen, Urine Not Detected (NotDetected); Phencyclidine Screen,Urine Not Detected (NotDetected); Tricyclic Antidepressant,Urine Not Detected (NotDetected); Urn Cannabinoid Scrn Detected (NotDetected)
[2021-08-20] MEDS ORDERED: ONDANSETRON 4 MG ODT STARTER PACK 2 TAB BTL PO STA (01:24)
[2021-08-20] MEDS ORDERED: POTASSIUM CHLORIDE ER 20 MEQ TAB.ER PO STA (01:24)
== END 2021-08-20 01:40 | disposition home or self-care (01) ==
LOC: EC 21:44
DX: E86.0 Dehydration (principal); E87.6 Hypokalemia; R19.7 Diarrhea, unspecified; R11.2 Nausea with vomiting, unspecified; R10.11 Right upper quadrant pain; J45.909 Unspecified asthma, uncomplicated; F12.90 Cannabis use, unspecified, uncomplicated; Z87.891 Personal history of nicotine dependence; Z79.1 Long term (current) use of non-steroidal anti-inflammatories (NSAID)
CPT/HCPCS: 36415; 80053; 83690; 85025; 81001; 81025; 80306; 76705; 99284; 96374; 96375 ×3; 96361 ×3; J1200; J2765; J2405; J1885; S0119

== ENCOUNTER → 2022-02-11 | Outpatient (CLI) | payer OTHER ==
--- NOTE | 2022-02-11 11:35 | P.CON ---
Consult Note - . Consult date: 02/11/22 Assessment/Plan:: HISTORY OF PRESENT ILLNESS: 26 yr old female as a referral from Dr. Keyes presents today with severe and chronic R Occipital Neuralgia secondary to cervical disc bulges and DDD for evaluation. Pt states her pain level is 5/10 in intensity, constant, throbbing and stabbing in the base of the R side of the neck with radiation of pain towards the scalp. Pain is accompanied with headache. It waxes & wanes in intensity throughout the day based on noise volume or bright lights. Pain is relieved with medications (antispasmodic), homeopathic iker sniff solution, ice, 12 sessions of PT in 2021 which were discontinued due to increased pain, pressure over the R side of the base of the neck, reducing light brightness and laying supine. Past Medical History: Asthma, Migraine HAs, MDD Past Surgical History: Section, Cervial Tumor Resection Social History: Former smoker, + Cannabis use, No ETOH abuse. Family History: Mother- HTN/ Brain aneurysm. All: See list Meds: See list REVIEW OF ORGAN SYSTEMS: CONSTITUTIONAL: No fevers or chills. No recent weight loss. HEENT: No visual acuity loss, eye pain, difficulties with hearing. No nosebleeds. No difficulty swallowing. RESPIRATORY: Denies any troubles with breathing or dyspnea on exertion. CARDIOVASCULAR: Denies any chest pain, palpitations, or recent heart attacks. GASTROINTESTINAL: Denies fatty food intolerance. Has change in bowel habits and gas bloat. GENITOURINARY: Denies any blood in urine. Has increased urinary frequency. NEUROLOGICAL: + numbness and tingling along the distal extremities. No seizure disorders or headaches. MUSCULOSKELETAL: + back pain SKIN: No skin cancer. No rash. PSYCHIATRIC: Denies current depression or suicidal thoughts. ENDOCRINE: Denies current thyroid disorders. Denies any blood sugar glucose intolerance. HEME/LYMPHATIC: Denies any lumps and bumps around the neck. History of deep venous thrombosis. ALLERGY/IMMUNOLOGY: No immunoglobulin therapy. No immune deficiencies. BREAST: Denies current breast lumps, pain or nipple discharge. Physical Examinations : Constitutional : Cooperative , not in acute distress . HEENT: Neck supple. No Lymphadenopathy. Normal thyroid size . Eyes no ptosis , no icterus, no photophobia . +R G.O.N. TTP Hearing intact. Normal oropharynx. No Thrush. Respiratory : Chest clear to auscultations bilaterally. No wheezing. No rhonchi. Cardiovascular : Regular rate and rhythm , S1 / S2. No S3 . No S4. Gastrointestinal : Abdomen soft. No tenderness. Bowel sounds x 4. No organomegaly . Genitourinary : Deferred. Neurologic : Cranial nerve II to XII intact. No focal neurological deficits. Psychiatric : alert & oriented x 3. Matching mood & appropriate affect. Judgment & insight intact. Lymphatic No Lymphadenopathy. Musculoskeletal : Cervical Spine Motor strength in the deltoid and biceps: Normal right side. Normal Left side Motor strength biceps and the wrist extensors: Normal right side . Normal left side Motor strength in the triceps muscle: Normal right side. Normal left side Deep tendon reflexes: Normal at the biceps. Normal at Brachioradialis. Normal at triceps Cervical facet loading test: positive bilaterally Spurling test: positive bilaterally Neck distraction test: positive bilaterally Jeannie sign: positive bilaterally Lumbar spine Motor strength lower extremities ,thigh and legs 5/5 Right side , 5/5 Left side Deep tendon reflexes : Normal Knee Jerk. Normal Ankle Jerk Vertebral body tenderness over Lumbar facet Loading Test: positive Right / positive Left Range of motion of the lumbar spine Flexion 30 degrees, extension 10 degrees Straight Leg Raise test: Left/ Right positive at degree Chiquita test: positive right / positive left. Severe tenderness over the Sacroiliac joint on the Right / Left sides Gaenslen test: positive bilaterally Seated flexion test: positive bilaterally. Sacral spine : Severe tenderness over the Sacroiliac joint: right side / left side Range of motion: Flexion of the lumbar spine <60 degrees Range of motion: Extension of the lumbar spine <20 degrees Gaenslen's Test positive Kyle's Test positive Chiquita test: positive right side / left side Thigh Thrust Test Sacral Thrust Test Imaging: MRI without contrast of the cervical spine from 10/03/20 reviewed Assessment/ Plan : R Occipital Neuralgia Recommendation of R G.O.N. injection. May need a series of injections, up to 3 within a 6 mo period, for optimal pain relief. Risks, benefits of procedure discussed and patient verbalized understanding. Denies aspirin or anti- coagulant use or medical history of diabetes. All questions answered. I have spent greater than 50 minutes on patient care today. Dr Pierce was available by phone for the evaluation of this patient. The time was used to review the medical records including relevant urine studies and Prescription history (MAPs), review of the available imaging, evaluation and examination of the patient, coordination of care with the medical staff and if applicable referring physicians, as well as creation of the medical record PQRS Measure Charge Sheet PQRS Narrative: Smoking Status Former smoker Home Medications: Ambulatory Orders HYDROcodone/APAP 5-325MG [[place] 5-325] 1 tab PO Q4HR PRN #30 tab 01/05/20 Ibuprofen [Motrin] 600 mg PO Q6HR PRN #30 tab 01/05/20 Cephalexin [Keflex] 500 mg PO Q6H 10 Days #40 cap 01/07/20
[2022-02-11 11:46] VITALS: BP 108/53; PULSE 78; RESP 18; TEMP 98.8
== END ==
LOC: PNWHC3 10:58
PROVIDERS: ATTEND Specialist
DX: M54.81 Occipital neuralgia (principal); Z87.891 Personal history of nicotine dependence; Z91.048 Other nonmedicinal substance allergy status; Z91.040 Latex allergy status; Z88.5 Allergy status to narcotic agent
CPT/HCPCS: 99211

== ENCOUNTER 2022-03-17 11:32 | Day surgery (SDC) | payer OTHER ==
[2022-03-16 09:44] VITALS: BMI 19.3
[~2022-03-17 11:32] MED LIST changes: -ALBUTEROL NEBULIZED 2.5 MG/3 ML INHALATION PRN; +LACTATED RINGERS 1,000 ML IV SCH; +LIDOCAINE 1% (10MG/ML) FOR IV START INTRADERMA PRN
[2022-03-17 12:32] VITALS: TEMP 97.4
[2022-03-17] MEDS ORDERED: methylPREDNISolone ACETATE 80 MG/ML 1 ML VIAL ONE (13:14)
[2022-03-17] MEDS ORDERED: fentaNYL (PF) 50 MCG/ML 2 ML AMP ONE (13:14)
[2022-03-17] MEDS ORDERED: MIDAZOLAM 2 MG/2 ML VIAL ONE (13:14)
[2022-03-17] MEDS ORDERED: ROPIVACAINE 5MG/ML 20ML VIAL ONE (13:14)
--- NOTE | 2022-03-17 13:22 | P.PCN ---
Date of Procedure: 03/17/22 Procedure(s) Performed: Preoperative diagnoses= 1- Right Greater occipital neuralgia Postoperative diagnoses= same as preoperative diagnosis. Procedure= Right Greater occipital nerve block Anesthesia= moderate sedation with Versed 2 mg and fentanyl 100 micrograms . Estimated blood loss=minimal. Procedure indication= the patient had a history of severe chronic neck pain ,and headache, diagnosed with occipital neuralgia exam was positive for severe tenderness over the Right occipital nerve , she will be a good candidate occipital nerve block, patient failed conservative management Procedure description= the patient was seen and identified in the preoperative holding area, risks and benefits and alternative of the procedure and possible complications discussed with the patient, and he agreed with the preceding, patient signed the consent, an IV was started, and vital signs were monitored an d were stable throughout the procedure, patient was placed in the sitting position or table and the neck area was prepped and draped with a sterile fashion, vital signs were closely monitored during the procedure, 25-gauge needle advanced 1 inch lateral to the occipital protuberance on the right side, at the location of the right occipital nerve , then after negative aspiration for heme and CSF and there was no paresthesia during the injection, 6 ml of Robivacaine 0.5% and 80 mg of Depo-Medrol injected after negative aspiration, the needle removed. Patient tolerated the procedure well without any complication, The patient returned to supine position after the back was cleaned and a Band- Aid applied, the patient transported to recovery room in stable condition and he was monitored for 30 minutes before he was discharged home and then patient was reexamined before going home and patient was discharged in stable condition and patient will follow up with the pain clinic in a few weeks.
[2022-03-17] MEDS ORDERED: IV FLUID CONTINUATION 1,000 ML IV ONE (13:25)
[2022-03-17 13:29] VITALS: RESP 16
[2022-03-17 13:46] VITALS: BP 126/84; PULSE 62
== END 2022-03-17 14:00 | disposition home or self-care (01) ==
LOC: ORPAIN 11:32
PROVIDERS: ATTEND Specialist
DX: M54.81 Occipital neuralgia (principal)
CPT/HCPCS: 81025; 64405; J2250; J1040; J3010; J2795

== ENCOUNTER 2022-07-21 09:20 | Emergency (ER) | payer OTHER ==
[2022-07-21 09:37] VITALS: TEMP 98.5
[2022-07-21] MEDS ORDERED: SODIUM CHLORIDE 0.9% 1,000 ML IV STA (10:16)
[2022-07-21] MEDS ORDERED: PANTOPRAZOLE 40 MG/10 ML VIAL IVP STA (10:16)
[2022-07-21] MEDS ORDERED: ONDANSETRON 4 MG/2 ML VIAL IVP STA (10:16)
[2022-07-21] MEDS ORDERED: MORPHINE SULFATE 4 MG/ML SYRINGE IV STA (10:16)
--- NOTE | 2022-07-21 10:17 | ED ---
General Adult HPI - General Chief complaint: Abdominal Pain Stated complaint: vomiting Time Seen by Provider: 07/21/22 10:10 Source: patient, RN notes reviewed, old records reviewed Mode of arrival: ambulatory Limitations: no limitations - History of Present Illness Initial comments: Patient is a 26-year-old female who presents emergency Department complaining of nonspecific abdominal pain. States it is primarily in the epigastric region and right upper quadrant. Some mild suprapubic pain as well. Denies any vaginal discharge or bleeding. Denies any history of STDs. States she is not . Endorses nausea but no vomiting. Denies any diarrhea or change in bowel movements. Denies any chest pain or shortness of breath. Denies any abdominal surgeries other than section. Has no other acute complaints at this time. Presents for further evaluation for her abdominal pain. Denies any history of excessive alcohol or drug use. - Related Data Home Medications Medication Instructions Recorded Confirmed Famotidine [Pepcid] 20 mg PO BID PRN 07/21/22 07/21/22 Omeprazole [PriLOSEC] 20 mg PO BID PRN 07/21/22 07/21/22 Ondansetron Odt [Zofran Odt] 4 mg PO DAILY PRN 07/21/22 07/21/22 hydrOXYzine HCL [Atarax] 25 mg PO HS PRN 07/21/22 07/21/22 Previous Rx's Medication Instructions Recorded Metoclopramide HCl [Reglan] 5 mg PO BID PRN 4 Days #8 tab 07/21/22 Allergies Allergy/AdvReac Type Severity Reaction Status Date / Time adhesive tape Allergy Rash/Hives Verified 07/21/22 10:56 latex Allergy Rash/Hives Verified 07/21/22 10:56 tramadol AdvReac Nausea & Verified 07/21/22 10:56 Vomiting Review of Systems ROS Statement: Those systems with pertinent positive or pertinent negative responses have been documented in the HPI. Review of Systems: CONST: Denies fever EYES: Denies blurry vision ENT: Denies nasal congestion C/V: Denies Chest pain RESP: Denies shortness of breath GI: Endorses abdominal pain : Denies dysuria SKIN: Denies rash. MSK: Denies joint pain. NEURO: Denies headache ROS Other: All systems not noted in ROS Statement are negative. Past Medical History Past Medical History: Asthma Additional Past Medical History / Comment(s): migraines History of Any Multi-Drug Resistant Organisms: ESBL Date of last positivie culture/infection: 01/11/17 MDRO Source:: ESBL URINE Past Surgical History: Section Additional Past Surgical History / Comment(s): neck tumor, Past Anesthesia/Blood Transfusion Reactions: No Reported Reaction Past Psychological History: Depression Smoking Status: Current some day smoker Past Alcohol Use History: Occasional Past Drug Use History: Marijuana - Past Family History Mother Family Medical History: Hypertension Additional Family Medical History / Comment(s): Brain aneurysm. General Exam - General Exam Comments Initial Comments: General: Appears in no acute distress. HEAD: Normal with no signs of head trauma. EYES: PERRLA, EOMI, conjunctiva normal, no discharge. ENT: Hearing grossly intact, normal oropharynx. RESPIRATORY: Clear breath sounds bilaterally. No wheezes, rales, or rhonchi. C/V: Regular rate and rhythm. S1 and S2 auscultated, no edema, peripheral pulses 2+ and intact throughout ABD: Abdomen is soft, nondistended. Tender to palpation primarily midepigastric and right upper quadrant. Minimal suprapubic tenderness to palpation. No guarding. No rebound tenderness. No CVA tenderness to percussion. No peritoneal signs. EXT: Normal range of motion, no obvious deformity SKIN: No rashes or lesions observed on exposed skin. NEURO: Alert and oriented 4. Limitations: no limitations Course Vital Signs 07/21/22 07/21/22 07/21/22 09:30 09:35 15:23 Temperature 98.2 F 98.5 F Pulse Rate 75 87 74 Respiratory 20 20 18 Rate Blood Pressure 128/80 129/78 129/86 O2 Sat by Pulse 100 99 Oximetry Medical Decision Making - Medical Decision Making Based on the patient's presentation and physical exam, I'm concerned for acute intra-abdominal process for the patient's current symptoms. Differential includes gastritis, infection, UTI, gallbladder pathology. We will obtain abdominal laboratory studies as well as a bladder ultrasound and abdominal x- ray. She will be symptomatically treated with IV fluids and analgesic medications. Vital signs within acceptable limits. She was in agreement with this plan. Patient's laboratory studies are unremarkable including a negative Covid swab and not being . Gallbladder ultrasound shows no acute findings. Abdominal x-ray shows nonspecific findings. On reevaluation, patient is feeling improved. There is a delay as I would like to obtain a urinalysis. Patient was finally able to urinate for us. She is tolerating oral intake at this time. We'll evaluate the urine and discuss disposition. She was in agreement this plan. We did discuss workup up until this point. She expressed understanding. Urinalysis shows 4+ ketones but no signs of infection. I did the patient. She expressed understanding. Like to go home. She'll be discharged home with Reglan. Strict return precautions were discussed. I will provide the patient with a prescription for Reglan. I instructed the patient to follow up with their PCP in the next 1-3 days. I explained that the patient should return to the emergency department if they experience any worsening symptoms. Strict return precautions were discussed with the patient. The patient expressed understanding of these instructions. I answered all questions that the patient had. The patient was discharged home in good condition with their prescriptions and follow up information. - Lab Data Result diagrams: 07/21/22 10:38 07/21/22 10:38 Lab Results 07/21/22 07/21/22 07/21/22 Range/Units 10:38 10:38 10:38 WBC 8.5 (3.8-10.6) k/uL RBC 4.29 (3.80-5.40) m/uL Hgb 13.6 (11.4-16.0) gm/dL Hct 41.0 (34.0-46.0) % MCV 95.8 (80.0-100.0) fL MCH 31.8 (25.0-35.0) pg MCHC 33.2 (31.0-37.0) g/dL RDW 13.2 (11.5-15.5) % Plt Count 271 (150-450) k/uL MPV 8.9 Neutrophils % 66 % Lymphocytes % 27 % Monocytes % 3 % Eosinophils % 2 % Basophils % 1 % Neutrophils # 5.6 (1.3-7.7) k/uL Lymphocytes # 2.3 (1.0-4.8) k/uL Monocytes # 0.3 (0-1.0) k/uL Eosinophils # 0.1 (0-0.7) k/uL Basophils # 0.0 (0-0.2) k/uL PT 11.1 (9.0-12.0) sec INR 1.0 (<1.2) APTT 25.4 (22.0-30.0) sec Sodium (137-145) mmol/L Potassium (3.5-5.1) mmol/L Chloride (98-107) mmol/L Carbon Dioxide (22-30) mmol/L Anion Gap mmol/L BUN (7-17) mg/dL Creatinine (0.52-1.04) mg/dL Est GFR (CKD-EPI)AfAm (>60 ml/min/1.73 sqM) Est GFR (CKD-EPI)NonAf (>60 ml/min/1.73 sqM) Glucose (74-99) mg/dL Plasma Lactic Acid [place] (0.7-2.0) mmol/L Calcium (8.4-10.2) mg/dL Total Bilirubin (0.2-1.3) mg/dL AST (14-36) U/L ALT (4-34) U/L Alkaline Phosphatase (38-126) U/L Total Protein (6.3-8.2) g/dL Albumin (3.5-5.0) g/dL Amylase (30-110) U/L Lipase (23-300) U/L HCG, Qual Urine Color Yellow Urine Appearance Cloudy H (Clear) Urine pH 6.5 (5.0-8.0) Ur Specific [place] 1.035 (1.001-1.035) Urine Protein 1+ H (Negative) Urine Glucose (UA) Negative (Negative) Urine Ketones 4+ H (Negative) Urine Blood Negative (Negative) Urine Nitrite Negative (Negative) Urine Bilirubin Negative (Negative) Urine Urobilinogen 4.0 (<2.0) mg/dL Ur Leukocyte Esterase Negative (Negative) Urine RBC 2 (0-5) /hpf Urine WBC 1 (0-5) /hpf Ur Squamous Epith Cells 7 H (0-4) /hpf Urine Mucus Many H (None) /hpf Coronavirus (PCR) (Not Detectd) 07/21/22 07/21/22 07/21/22 Range/Units 10:38 10:38 10:38 WBC (3.8-10.6) k/uL RBC (3.80-5.40) m/uL Hgb (11.4-16.0) gm/dL Hct (34.0-46.0) % MCV (80.0-100.0) fL MCH (25.0-35.0) pg MCHC (31.0-37.0) g/dL RDW (11.5-15.5) % Plt Count (150-450) k/uL MPV Neutrophils % % Lymphocytes % % Monocytes % % Eosinophils % % Basophils % % Neutrophils # (1.3-7.7) k/uL Lymphocytes # (1.0-4.8) k/uL Monocytes # (0-1.0) k/uL Eosinophils # (0-0.7) k/uL Basophils # (0-0.2) k/uL PT (9.0-12.0) sec INR (<1.2) APTT (22.0-30.0) sec Sodium 135 L (137-145) mmol/L Potassium 3.9 (3.5-5.1) mmol/L Chloride 101 (98-107) mmol/L Carbon Dioxide 21 L (22-30) mmol/L Anion Gap 13 mmol/L BUN 9 (7-17) mg/dL Creatinine 0.77 (0.52-1.04) mg/dL Est GFR (CKD-EPI)AfAm >90 (>60 ml/min/1.73 sqM) Est GFR (CKD-EPI)NonAf >90 (>60 ml/min/1.73 sqM) Glucose 81 (74-99) mg/dL Plasma Lactic Acid [place] 1.1 (0.7-2.0) mmol/L Calcium 9.7 (8.4-10.2) mg/dL Total Bilirubin 0.9 (0.2-1.3) mg/dL AST 25 (14-36) U/L ALT 29 (4-34) U/L Alkaline Phosphatase 46 (38-126) U/L Total Protein 7.5 (6.3-8.2) g/dL Albumin 4.9 (3.5-5.0) g/dL Amylase 104 (30-110) U/L Lipase 17 L (23-300) U/L HCG, Qual Not Detected Urine Color Urine Appearance (Clear) Urine pH (5.0-8.0) Ur Specific [place] (1.001-1.035) Urine Protein (Negative) Urine Glucose (UA) (Negative) Urine Ketones (Negative) Urine Blood (Negative) Urine Nitrite (Negative) Urine Bilirubin (Negative) Urine Urobilinogen (<2.0) mg/dL Ur Leukocyte Esterase (Negative) Urine RBC (0-5) /hpf Urine WBC (0-5) /hpf Ur Squamous Epith Cells (0-4) /hpf Urine Mucus (None) /hpf Coronavirus (PCR) Not Detected (Not Detectd) Disposition Clinical Impression: Nausea & vomiting, Abdominal pain of unknown cause Disposition: HOME SELF-CARE Condition: Stable Instructions (If sedation given, give patient instructions): Acute Nausea and Vomiting (ED) Prescriptions: Metoclopramide HCl [Reglan] 5 mg PO BID PRN 4 Days #8 tab PRN Reason: Nausea Is patient prescribed a controlled substance at d/c from ED?: No Referrals: Rosanna Blackburn MD [Primary Care Provider] - 1-2 days Time of Disposition: 14:00
[2022-07-21] MEDS ORDERED: METOCLOPRAMIDE 5 MG/ML 2 ML VIAL IVP STA ×2 (10:42→14:52)
[2022-07-21 11:05] LABS: Basophils % (A) 1 %; Eosinophils # (A) 0.1 k/uL (0-0.7); Eosinophils % (A) 2 %; HGB 13.6 gm/dL (11.4-16.0); Lymphocytes # (A) 2.3 k/uL (1.0-4.8); Lymphocytes % (A) 27 %; MCH 31.8 pg (25.0-35.0); MCHC 33.2 g/dL (31.0-37.0); MCV 95.8 fL (80.0-100.0); Mean Platelet Volume 8.9; Monocytes # (A) 0.3 k/uL (0-1.0); Monocytes % (A) 3 %; Neutrophils # (A) 5.6 k/uL (1.3-7.7); Neutrophils % (A) 66 %; Platelet Count 271 k/uL (150-450); RBC 4.29 m/uL (3.80-5.40); RDW 13.2 % (11.5-15.5); WBC 8.5 k/uL (3.8-10.6)
[2022-07-21 11:16] LABS: HCG,Qualitative Serum Not Detected
[2022-07-21 11:18] LABS: Partial Thromboplastin Time 25.4 sec (22.0-30.0); Prothrombin Time 11.1 sec (9.0-12.0)
[2022-07-21 11:21] LABS: ALT 29 U/L (4-34); AST 25 U/L (14-36); African American GFR (CKD) >90 (>60 ml/min/1.73 sqM); Albumin 4.9 g/dL (3.5-5.0); Alkaline Phosphatase 46 U/L (38-126); Amylase 104 U/L (30-110); Anion Gap 13 mmol/L; Blood Urea Nitrogen 9 mg/dL (7-17); Calcium 9.7 mg/dL (8.4-10.2); Carbon Dioxide 21 mmol/L (22-30); Chloride 101 mmol/L (98-107); Glucose 81 mg/dL (74-99); Lipase 17 U/L (23-300); Non-African American GFR(CKD) >90 (>60 ml/min/1.73 sqM); Potassium 3.9 mmol/L (3.5-5.1); Sodium 135 mmol/L (137-145); Total Bilirubin 0.9 mg/dL (0.2-1.3); Total Protein 7.5 g/dL (6.3-8.2)
--- NOTE | 2022-07-21 11:48 | US ---
EXAMINATION TYPE: US gallbladder DATE OF EXAM: 07/21/2022 COMPARISON: Ultrasound abdomen limited August 19, 2021 CLINICAL HISTORY: ruq abd pain. N/V TECHNIQUE: Multiple sonographic images of the right upper quadrant are obtained. FINDINGS: EXAM MEASUREMENTS: Liver Length: 16.1 cm Gallbladder Wall: 0.1 cm CBD: 0.2 cm Right Kidney: 10.3 x 4.8 x 3.3 cm Pancreas: Main pancreatic duct = 1.2 mm. Liver: wnl Gallbladder: wnl Evidence for sonographic Bhagat's sign: neg CBD: wnl Right Kidney: No hydronephrosis or masses seen IMPRESSION: No gallstones or ultrasonic evidence for acute cholecystitis. No significant change from prior ultrasound.
--- NOTE | 2022-07-21 12:13 | XR ---
EXAMINATION TYPE: XR KUB DATE OF EXAM: 07/21/2022 12:03 PM CLINICAL HISTORY: Abdominal pain with nausea and vomiting TECHNIQUE: Single upright KUB image of the abdomen is obtained. COMPARISON: Prior abdominal x-ray 2013. FINDINGS: Gas seen in nondistended stomach. Scattered gas is seen in non-distended small and large denis wel loops. There is no visceromegaly, pneumoperitoneum, or abnormal calcification appreciated. Underl eleuterio levoconvex scoliosis redemonstrated. Lung bases are clear. IMPRESSION: Overall nonobstructive bowel gas pattern.
[2022-07-21 13:36] LABS: Appearance,Urine Cloudy (Clear); Bilirubin,Urine Negative (Negative); Blood,Urine Negative (Negative); Color,Urine Yellow; Glucose,Urine (UA) Negative (Negative); Ketones,Urine 4+ (Negative); Leukocyte Esterase,Urine Negative (Negative); Mucus,Urine Many /hpf; Nitrite,Urine Negative (Negative); PH, Urine 6.5 (5.0-8.0); Protein,Urine 1+ (Negative); RBC,Urine 2 /hpf (0-5); Specific Gravity,Urine 1.035 (1.001-1.035); Squamous Epithelial Cell,Urine 7 /hpf (0-4); WBC,Urine 1 /hpf (0-5)
[2022-07-21 15:25] VITALS: BP 129/86; PULSE 74; RESP 18
== END 2022-07-21 15:35 | disposition home or self-care (01) ==
LOC: EC 09:20
DX: R10.13 Epigastric pain (principal); J45.909 Unspecified asthma, uncomplicated; F32.A Depression, unspecified; F17.200 Nicotine dependence, unspecified, uncomplicated; F12.90 Cannabis use, unspecified, uncomplicated; Z88.8 Allergy status to other drugs, medicaments and biological substances; Z91.040 Latex allergy status; Z88.5 Allergy status to narcotic agent; Z79.899 Other long term (current) drug therapy; Z20.822 Contact with and (suspected) exposure to COVID-19
CPT/HCPCS: 36415; 80053; 82150; 83605; 83690; 85025; 85610; 85730; 81001; 84703; 87635; 74018; 76705; 99284; 96374; 96375 ×3; 96361 ×5; J2270; J2765; C9113

== ENCOUNTER 2025-03-08 16:18 | Outpatient (CLI) | payer OTHER ==
[2025-03-08 16:54] LABS: Appearance,Urine Clear (Clear); Bilirubin,Urine Negative (Negative); Blood,Urine Negative (Negative); Color,Urine Light Yellow; Glucose,Urine (UA) Negative (Negative); Ketones,Urine 2+ (Negative); Leukocyte Esterase,Urine Negative (Negative); Nitrite,Urine Negative (Negative); PH, Urine 6.5 (5.0-8.0); Protein,Urine Negative (Negative); Urobilinogen,Urine <2.0 mg/dL (<2.0)
[2025-03-08] MEDS: LACTATED RINGERS 1,000 ML IV SCH (17:38)
[2025-03-08 18:58] VITALS: BP 120/61; PULSE 75; RESP 16; TEMP 97.6
--- NOTE | 2025-03-23 11:34 | P.MSEPDOC ---
Presenting Problems - Arrival Data Date of Arrival on Unit: 03/08/25 Time of Arrival on Unit: 16:18 Mode of Transport: Ambulatory - Complaint OB-Reason for Admission/Chief Complaint: Possible Onset of Labor Comment: Contractions starting at 1330, q6-7min, rating 7/10-lower pelvic pressure, lower back pain Medical History - Information : 4 Para: 3 Term: 3 Number of Living Children: 3 - Gestational Age Gestational Age by JW (wks/days): 30 Weeks and 1 Days - History Complications: Prior Review of Systems - Review of Systems Constitutional: No problems Breast: No problems ENT: No problems Cardiovascular: No problems Respiratory: No problems Gastrointestinal: No problems Genitourinary: Urgency, Increased frequency Musculoskeletal: No problems Neurological: No problems Skin: No problems Vital Signs - Temperature Temperature: 97.6 F Temperature Source: Temporal Artery Scan - Pulse Right Sitting Brachial Pulse Rate: 75 Pulse Assessment Method: Automatic Cuff - Respirations Respiratory Rate: 16 Oxygen Delivery Method: Room Air O2 Sat by Pulse Oximetry: 98 - Blood Pressure Right Arm Sitting Blood Pressure: 120/61 Blood Pressure Mean: 80 Medical Screen Scoring - Cervical Exam Dilation (cm): 0 Effacement (%): 0 Membranes: Intact - Uterine Contractions Frequency From (mins): 2 Frequency To (mins): 4 Duration From (seconds): 40 Duration To (seconds): 60 Intensity: Moderate Resting: Soft to palpation - Assessment - Baby A Baseline FHR: 140 Heart Rate - NICHD Category: Category I (Normal) NST: Reactive Physician Notification - Physician Notified Physician Notified Date: 03/08/25 Physician Notified Time: 17:20 Physician: Caleb Borja New Order Received: Yes - Notification Comment Comment: Spk c\Dr. Borja, advsd pt of Dr. Chen, , 30.1, c/o contractions since 1330, currently q2-4min, palpate mod/strong, resting tone soft, Cat 1 FHT, FFN not collected r/t intercourse, SVE closed, thick, long. Reviewed UA. Order rec'd for hydrate c\2L LR and reeval, if contractions reduced pt may be discharged home. 184-After administration of 2L LR, pt states contraction intensity is greatly reduced, pt able to sit and talk comfortably, tracing q3-7m, palpate mild. Pt states she would like to be discharge home at this time Maternal Triage Index - Urgent/Priority 2 Urgent Priority 2: Yes Provider Notified: Caleb Borja Provider Notified Time: 17:20 Criteria Met for Priority 2: Contractions, 30wks Disposition - Disposition OB Disposition: Discharge to home, Written follow up instructions reviewed Discharge Date: 03/08/25 Discharge Time: 18:54 I agree with the RN Medical Screening Exam: Yes Physician's MSE Comment: I have neither seen nor examined the patient. Case reviewed; plan agreed upon as documented in EMR&OBIX.: Yes Diagnosis: RELATED CONDITIONS, UNSPECIFIED, THIRD TRIMESTER
== END 2025-03-08 18:54 | disposition home or self-care (01) ==
LOC: FBPOP 16:18
PROVIDERS: ATTEND Obstetrics & Gynecology
DX: O26.893 Other specified pregnancy related conditions, third trimester (principal); Z3A.30 30 weeks gestation of pregnancy; Z91.048 Other nonmedicinal substance allergy status; Z91.040 Latex allergy status; Z88.5 Allergy status to narcotic agent; Z87.891 Personal history of nicotine dependence
CPT/HCPCS: 59025; 96361; 96365; 81003; G0463; 99213